=== PATIENT | female | born 1965 | race Caucasian/White ===

== ENCOUNTER 2017-08-27 07:47 | Emergency (ER) | payer SELFPAY ==
[2017-08-27] MEDS ORDERED: Ondansetron INJ* 2 MG/ML VIAL IV ONE (08:08)
[2017-08-27] MEDS ORDERED: Morphine INJ* 4 MG/ML 1 ML CARPUJECT IV PRN (08:08)
[2017-08-27] MEDS ORDERED: NS 0.9% 1000 ML* 1,000 ML IV ONE (08:08)
[2017-08-27] MEDS ORDERED: Morphine INJ* 4 MG/ML 1 ML SYRINGE (NEW SYRINGE VERSION) ONE (08:21)
[2017-08-27 08:58] LABS: ABS Basophils 0.1 10^3/ul (0-0.2); ABS Eosinophils 0.2 10^3/ul (0-0.6); ABS Lymphocytes 1.8 10^3/ul (1.0-4.8); ABS Monocytes 0.5 10^3/ul (0-0.8); ABS Neutrophils 4.2 10^3/ul (1.5-7.7); ABS Nucleated RBC 0 10^3/ul; Eosinophil % 3.2 % (0-6); Hematocrit 41 % (35-47); Hemoglobin 13.7 g/dl (12.0-16.0); Mean Corpuscular HGB Conc 34 g/dl (31-36); Mean Corpuscular Hemoglobin 32 pg (27-31); Mean Corpuscular Volume 94 fL (80-97); Mean Platelet Volume 9 um3 (7.4-10.4); Nucleated Red Blood Cells % 0.1; Platelet Count 194 10^3/ul (150-450); Red Blood Count 4.33 10^6/ul (4.0-5.4); Red Cell Distribution Width 13 % (10.5-15); White Blood Count 6.8 10^3/ul (3.5-10.8)
[2017-08-27 09:19] LABS: EGFR Non-African American 111.4 (>60)
--- NOTE | 2017-08-27 09:22 | RAD ---
HISTORY: Right upper quadrant pain COMPARISONS: None TECHNIQUE: Multiple transverse and longitudinal ultrasound images were obtained of the right upper quadrant of the abdomen using grayscale and color Doppler imaging. FINDINGS: LIVER: The liver is normal in shape, size, contour, and echogenicity. There are no focal parenchymal masses. There is normal hepatopedal flow of the portal vein on Doppler imaging. BILIARY TREE: There is no intrahepatic or extrahepatic biliary dilatation. The common duct measures 0.5 cm. GALLBLADDER: There is a 0.2 cm echogenic nonshadowing focus of the gallbladder wall consistent with a polyp. There is no sonographic Wong's sign. There is no gallbladder wall thickening or pericholecystic fluid. PANCREAS: The head of the pancreas is unremarkable. The tail of the pancreas is not well visualized secondary to overlying bowel gas. RIGHT KIDNEY: There are simple cysts of the right kidney measuring up to 1.5 cm in size. There is no hydronephrosis or nephrolithiasis. The right kidney measures 10.9 x 4.6 x 6 cm. AORTA AND IVC: The aorta and IVC are unremarkable. FLUID: There are no pleural effusions. There is no free fluid within the hepatorenal recess. OTHER FINDINGS: None. IMPRESSION: 0.2 CM GALLBLADDER WALL POLYP. OTHERWISE UNREMARKABLE ULTRASOUND OF THE RIGHT UPPER QUADRANT OF THE ABDOMEN.
[2017-08-27 10:37] LABS: Urine Appearance Cloudy; Urine Blood 1+ (Negative); Urine Color Yellow; Urine Ketones Negative (Negative); Urine Protein Negative (Negative); Urine Specific Gravity 1.011 (1.010-1.030); Urine Urobilinogen Negative (Negative)
--- NOTE | 2017-08-27 11:21 | RAD ---
CLINICAL HISTORY: Abdominal pain COMPARISON: Ultrasound dated August 27, 2017 TECHNIQUE: Multiple contiguous axial CT scans were obtained of the abdomen and pelvis, without intravenous contrast enhancement. Coronal and sagittal multiplanar reformations are submitted for review. Oral contrast was not administered. FINDINGS: The study is limited by the lack of intravenous contrast. This limits evaluation of the solid organs and vasculature. LUNG BASES: There is a calcified granuloma of the left lower lobe. LIVER: The liver is normal in shape, size, contour, and attenuation. BILE DUCTS: There is no intrahepatic or extrahepatic biliary dilatation. GALLBLADDER: The gallbladder is normal, without pericholecystic inflammatory change. PANCREAS: The pancreas is normal, without mass or ductal dilatation. SPLEEN: There are calcified granulomas of the spleen. UPPER GI TRACT: Evaluation of the gastrointestinal tract is limited by incomplete gastric distention. The upper GI tract is unremarkable. SMALL BOWEL AND MESENTERY: The small bowel is normal in contour, course, and caliber. There is no obstruction or dilatation. COLON: The colon is normal in contour, course, caliber. There is no pericolonic inflammatory change. ADRENALS: Normal bilaterally. KIDNEYS: There is a 0.2 cm punctate nonobstructing left renal calyceal stone of the lower pole. BLADDER: The bladder is smooth in contour. PELVIC ORGANS: The pelvic organs are not visualized. AORTA: The aorta is normal. IVC: Unremarkable LYMPH NODES: There is no lymphadenopathy by size criteria. ABDOMINAL WALL: There is no evidence for abdominal wall hernia. BONES AND SOFT TISSUES: The patient is status post spinal fusion. OTHER: None IMPRESSION: 1. PUNCTATE NONOBSTRUCTING LEFT RENAL CALYCEAL STONE.. 2. EVIDENCE OF EXPOSURE TO GRANULOMATOUS DISEASE.
[2017-08-27 11:41] VITALS: BP 114/76
--- NOTE | 2017-08-28 16:11 | ED ---
Jarett Orozco Angela, scribed for Rich Hilliard MD on 08/27/17 at 0801 . Abdominal Pain/Female - HPI Summary HPI Summary: This pt is a 51 y/o female presenting to [facility] via EMS c/o abd pain x3 days. Pt states her pain began after going the gym a few days ago. She notes associated symptoms of nausea and vomiting. Pt reports her pain radiates to right shoulder. She rates her pain 8.5 out of 10 in severity. Denies diarrhea. Denies tobacco, drug, and alcohol use. PMHx: Hosea's gpa, asthma, eating disorder. - History of Current Complaint Chief Complaint: EDAbdPain Stated Complaint: ABD PAIN Hx Obtained From: Patient Onset/Duration: Lasting Days, Still Present Timing: Days Severity Currently: Severe Pain Intensity: 9 Pain Scale Used: 0-10 Numeric Location: Discrete At: RUQ Radiates: Yes Radiates to: Other - right shoulder Aggravating Factor(s): Nothing Alleviating Factor(s): Nothing Associated Signs and Symptoms: Positive: Nausea, Vomiting. Negative: Diarrhea Allergies/Adverse Reactions: Allergies Allergy/AdvReac Type Severity Reaction Status Date / Time acetaminophen [From Tylenol] Allergy Unknown Verified 08/27/17 07:56 Reaction Details amoxicillin Allergy Unknown Verified 08/27/17 07:56 Reaction Details celecoxib [From Celebrex] Allergy Unknown Verified 08/27/17 07:56 Reaction Details Corticosteroids Allergy Unknown Verified 08/27/17 09:52 (Glucocorticoids) Reaction Details dicyclomine Allergy Unknown Verified 08/27/17 07:56 Reaction Details diphenhydramine Allergy Unknown Verified 08/27/17 07:56 [From Benadryl] Reaction Details Iodinated Contrast- Oral and Allergy Unknown Verified 08/27/17 09:52 IV Dye Reaction Details NSAIDS (Non-Steroidal Allergy Unknown Verified 08/27/17 07:56 Anti-Inflamma Reaction Details Penicillins Allergy Unknown Verified 08/27/17 07:56 Reaction Details tramadol Allergy Unknown Verified 08/27/17 07:56 Reaction Details trazodone Allergy Unknown Verified 08/27/17 07:56 Reaction Details PMH/Surg Hx/FS Hx/Imm Hx Endocrine/Hematology History: Denies: Hx Diabetes Cardiovascular History: Denies: Hx Hypertension Respiratory History: Reports: Hx Asthma Psychiatric History: Reports: Hx Eating Disorder - Surgical History Surgery Procedure, Year, and Place: Appendectomy. Rotator cuff Infectious Disease History: No Infectious Disease History: Denies: Traveled Outside the [place] in Last 30 Days - Family History Known Family History: Positive: Cardiac Disease - Mother - Social History Alcohol Use: None Substance Use Type: Reports: None Smoking Status (MU): Never Smoked Tobacco Review of Systems Negative: Fever, Chills Eyes: Negative ENT: Negative Positive: Abdominal Pain, Vomiting, Nausea. Negative: Diarrhea Musculoskeletal: Negative Skin: Negative Neurological: Negative All Other Systems Reviewed And Are Negative: Yes Physical Exam - Summary Physical Exam Summary: VITAL SIGNS: Reviewed. GENERAL: Patient is a well-developed and nourished female who is lying comfortable in the stretcher. Patient is not in any acute respiratory distress. HEAD AND FACE: Normocephalic and atraumatic. EYES: PERRLA, EOMI x 2, No injected conjunctiva. EARS: Hearing grossly intact. Ear canals and tympanic membranes are WNL. MOUTH: Oropharynx within normal limits. NECK: Supple, trachea is midline, no adenopathy, no JVD. CHEST: Symmetric, no tenderness at palpation LUNGS: Clear to auscultation bilaterally. No wheezing or crackles. CVS: RRR, S1 and S2 present, no murmurs or gallops appreciated. ABDOMEN: Soft. RUQ tenderness. No signs of distention. Positive bowel sounds. No rebound no guarding, and no masses palpated. No abdominal bruit or pulsations. EXTREMITIES: FROM in all major joints, no edema, no cyanosis or clubbing. NEURO: Alert and oriented x 3. No acute neurological deficits. Speech is normal. SKIN: Dry and warm Triage Information Reviewed: Yes Vital Signs On Initial Exam: Initial Vitals Temp Pulse Resp BP Pulse Ox 98.7 F 86 20 119/73 98 08/27/17 07:49 08/27/17 07:49 08/27/17 07:49 08/27/17 07:49 08/27/17 07:49 Vital Signs Reviewed: Yes Diagnostics - Vital Signs Vital Signs Temp Pulse Resp BP Pulse Ox 08/27/17 07:49 98.7 F 86 20 119/73 98 - Laboratory Lab Results: Lab Results 08/27/17 08/27/17 08/27/17 Range/Units 08:40 08:40 09:55 WBC 6.8 (3.5-10.8) 10^3/ul RBC 4.33 (4.0-5.4) 10^6/ul Hgb 13.7 (12.0-16.0) g/dl Hct 41 (35-47) % MCV 94 (80-97) fL MCH 32 H (27-31) pg MCHC 34 (31-36) g/dl RDW 13 (10.5-15) % Plt Count 194 (150-450) 10^3/ul MPV 9 (7.4-10.4) um3 Neut % (Auto) 62.5 (38-83) % Lymph % (Auto) 26.0 (25-47) % Maverick % (Auto) 7.4 H (0-7) % Eos % (Auto) 3.2 (0-6) % Baso % (Auto) 0.9 (0-2) % Absolute Neuts (auto) 4.2 (1.5-7.7) 10^3/ul Absolute Lymphs (auto) 1.8 (1.0-4.8) 10^3/ul Absolute Monos (auto) 0.5 (0-0.8) 10^3/ul Absolute Eos (auto) 0.2 (0-0.6) 10^3/ul Absolute Basos (auto) 0.1 (0-0.2) 10^3/ul Absolute Nucleated RBC 0 10^3/ul Nucleated RBC % 0.1 Sodium 137 (133-145) mmol/L Potassium 4.4 (3.5-5.0) mmol/L Chloride 102 (101-111) mmol/L Carbon Dioxide 31 (22-32) mmol/L Anion Gap 4 (2-11) mmol/L BUN 21 (6-24) mg/dL Creatinine 0.57 (0.51-0.95) mg/dL Est GFR ( Amer) 143.2 (>60) Est GFR (Non-Af Amer) 111.4 (>60) BUN/Creatinine Ratio 36.8 H (8-20) Glucose 100 (70-100) mg/dL Calcium 9.4 (8.6-10.3) mg/dL Total Bilirubin 0.50 (0.2-1.0) mg/dL AST 72 H (13-39) U/L ALT 103 H (7-52) U/L Alkaline Phosphatase 97 (34-104) U/L Total Creatine Kinase 60 (10-223) U/L C-Reactive Protein 1.00 (< 5.00) mg/L Total Protein 7.3 (6.4-8.9) g/dL Albumin 4.2 (3.2-5.2) g/dL Globulin 3.1 (2-4) g/dL Albumin/Globulin Ratio 1.4 (1-3) Lipase 13 (11.0-82.0) U/L Urine Color Yellow Urine Appearance Cloudy Urine pH 7.0 (5-9) Ur Specific [place] 1.011 (1.010-1.030) Urine Protein Negative (Negative) Urine Ketones Negative (Negative) Urine Blood 1+ A (Negative) Urine Nitrate Negative (Negative) Urine Bilirubin Negative (Negative) Urine Urobilinogen Negative (Negative) Ur Leukocyte Esterase 1+ A (Negative) Urine WBC (Auto) Trace(0-5/hpf) (Absent) Urine RBC (Auto) Trace(0-2/hpf) (Absent) Ur Squamous Epith Cells Present A (Absent) Urine Bacteria Absent (Absent) Urine Glucose Negative (Negative) Result Diagrams: 08/27/17 08:40 08/27/17 08:40 Lab Statement: Any lab studies that have been ordered have been reviewed, and results considered in the medical decision making process. - CT Abdomen/Pelvis CT CT Interpretation: Positive (See Comments) - IMPRESSION: 1. Punctate nonobstructing left renal calyceal stone. 2. Evidence of exposure to granulomatous disease. Dr. Hilliard has reviewed this radiology report. CT Interpretation Completed By: Radiologist - Ultrasound No standard instances Ultrasound Interpretation: Positive (See Comments) - Gallbladder US IMPRESSION: 0.2 CM gallbladder wall polyp. Otherwise unremarkable ultrasound of the right upper quadrant of the abdomen. Dr. Hilliard has reviewed this radiology report. Ultrasound Interpretation Completed By: Radiologist - EKG 08:23 Cardiac Rate: NL EKG Rhythm: Sinus Rhythm - at 81 bpm EKG Interpretation: No ST elevation.Hyperacute T waves in V4-V6. Possibly early repolarization. Re-Evaluation - Re-Evaluation First Eval Re-Evaluation Time: 10:14 Comment: I reviewed the ultrasound and lab results with the pt. Second Eval Re-Evaluation Time: 11:23 Comment: I reviewed the CT results with the pt. Abdominal Pain Fem Course/Dx - Course Course Of Treatment: This pt is a 51 y/o female presenting to [facility] via EMS c/o abd pain x3 days. Pt states her pain began after going the gym a few days ago. She notes associated symptoms of nausea and vomiting. Pt reports her pain radiates to right shoulder. She rates her pain 8.5 out of 10 in severity. Denies diarrhea. Denies tobacco, drug, and alcohol use. Test results without any significant abnormalities except for increase liver functions tests, possibly secondary to alcohol intake. Urinalysis is negative for UTI. RUQ ultrasound shows 0.2 CM gallbladder wall polyp. Otherwise unremarkable ultrasound of the right upper quadrant of the abdomen. Since the pt continues to have pain she was given IV fluids and morphine for the pain and I ordered an abdomen/pelvis CT. Abdomen/Pelvis CT shows 1. Punctate nonobstructing left renal calyceal stone. 2. Evidence of exposure to granulomatous disease. At this point I discussed the test results and findings with the pt and the need to follow up with her PCP. Therefore, pt will be discharged home. Pt is hemodynamically stable, alert and oriented x3. - Diagnoses Provider Diagnoses: Abdominal pain, Right upper quadrant pain Discharge - Discharge Plan Condition: Stable Disposition: HOME Patient Education Materials: Abdominal Pain (ED) Forms: *School Release Referrals: No Primary Care Phys,NOPCP [Primary Care Provider] - [facility] [facility]IAN REFERRAL [Outside] Additional Instructions: Please follow up with your primary care provider. RETURN TO THE ED FOR ANY WORSENING SYMPTOMS. The documentation as recorded by the Jarett boss Angela accurately reflects the service I personally performed and the decisions made by me, Rich Hilliard MD.
== END 2017-08-27 11:39 | disposition home or self-care (01) ==
LOC: ED 07:47
DX: R10.11 Right upper quadrant pain (principal); N20.0 Calculus of kidney; K82.4 Cholesterolosis of gallbladder; Z88.8 Allergy status to other drugs, medicaments and biological substances; Z88.6 Allergy status to analgesic agent; Z88.3 Allergy status to other anti-infective agents; Z88.5 Allergy status to narcotic agent; Z91.010 Allergy to peanuts; Z91.041 Radiographic dye allergy status
CPT/HCPCS: 36415; 74176; 76705; 80053; 81003; 81015; 82550; 83690; 85025; 86140; 87086; 93005; 96361; 96374; 96375; 99282; J2270; J2405

== ENCOUNTER 2018-02-02 03:10 | Emergency (ER) | payer BC, MEDICAID, OTHER ==
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
[2018-02-02] MEDS ORDERED: Ibuprofen TAB* 400 MG PO ONE (03:58)
[2018-02-02 06:29] VITALS: BP 140/98
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
== END 2018-02-02 06:00 | disposition home or self-care (01) ==
LOC: ED 03:10
DX: T76.11XA Adult physical abuse, suspected, initial encounter (principal); Z88.6 Allergy status to analgesic agent; Z88.3 Allergy status to other anti-infective agents; Z88.0 Allergy status to penicillin; Z91.041 Radiographic dye allergy status
CPT/HCPCS: 99282

== ENCOUNTER 2018-03-10 19:51 | Emergency (ER) | payer SELFPAY ==
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
[2018-03-10 22:11] VITALS: BP 134/65
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
== END 2018-03-10 22:10 | disposition home or self-care (01) ==
LOC: ED 19:51
DX: T14.8XXA Other injury of unspecified body region, initial encounter (principal); V89.2XXA Person injured in unspecified motor-vehicle accident, traffic, initial encounter; Y92.9 Unspecified place or not applicable; Z87.891 Personal history of nicotine dependence
CPT/HCPCS: 70450; 99282

== ENCOUNTER 2018-03-16 02:58 | Emergency (ER) | payer OTHER ==
[2018-03-16] MEDS ORDERED: LORazepam TAB(*) 1 MG PO ONE (03:37)
[2018-03-16] MEDS ORDERED: Haloperidol INJ IV/IM* 5 MG/ML AMP IM ONE (03:37)
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
[2018-03-16] MEDS ORDERED: Haloperidol INJ IV/IM* 5 MG/ML AMP ONE (03:38)
[2018-03-16 04:38] LABS: ABS Basophils 0.1 10^3/ul (0-0.2); ABS Eosinophils 0 10^3/ul (0-0.6); ABS Lymphocytes 1.8 10^3/ul (1.0-4.8); ABS Monocytes 0.6 10^3/ul (0-0.8); ABS Neutrophils 5.8 10^3/ul (1.5-7.7); ABS Nucleated RBC 0 10^3/ul; Eosinophil % 0.4 % (0-6); Hematocrit 39 % (35-47); Hemoglobin 13.4 g/dl (12.0-16.0); Lymphocyte % 21.2 % (25-47); Mean Corpuscular HGB Conc 35 g/dl (31-36); Mean Corpuscular Hemoglobin 31 pg (27-31); Mean Corpuscular Volume 90 fL (80-97); Mean Platelet Volume 8.4 um3 (7.4-10.4); Nucleated Red Blood Cells % 0.3; Platelet Count 224 10^3/ul (150-450); Red Blood Count 4.31 10^6/ul (4.00-5.40); Red Cell Distribution Width 14 % (10.5-15); White Blood Count 8.3 10^3/ul (3.5-10.8)
[2018-03-16 04:53] LABS: EGFR Non-African American 115.6 (>60)
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
--- NOTE | 2018-03-16 09:40 | RAD ---
INDICATION: Swelling and pain one week after a fall COMPARISON: None TECHNIQUE: 4 view radiograph of the right knee. FINDINGS: The visualized bones are well-corticated and properly aligned. Mild degenerative changes include mild sclerotic change of the tibial plateau as well as narrowing of the medial compartment. There is an osteophyte noted at the superior pole of the patella on the lateral view. There is no radiographic evidence of joint effusion. There is no acute fracture, dislocation or other focal bony abnormality. IMPRESSION: Mild degenerative changes of the right knee without radiographically apparent acute fracture or other traumatic injury. If the patient's symptoms persist, follow-up imaging is recommended.
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
[2018-03-16 10:38] LABS: Urine Appearance Cloudy; Urine Blood Negative (Negative); Urine Color Yellow; Urine Ketones 1+ (Negative); Urine Protein Negative (Negative); Urine Specific Gravity 1.023 (1.010-1.030); Urine Urobilinogen Negative (Negative)
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
[2018-03-16 14:17] VITALS: BP 122/70
== END 2018-03-16 14:16 | disposition home or self-care (01) ==
LOC: ED 02:58 → EEVIPCON 02:58 → ED 14:16
DX: F43.10 Post-traumatic stress disorder, unspecified (principal); T76.11XA Adult physical abuse, suspected, initial encounter; X58.XXXA Exposure to other specified factors, initial encounter; Y92.9 Unspecified place or not applicable; R91.1 Solitary pulmonary nodule; N28.1 Cyst of kidney, acquired; Z87.891 Personal history of nicotine dependence; Z88.5 Allergy status to narcotic agent; Z88.6 Allergy status to analgesic agent; Z88.3 Allergy status to other anti-infective agents; Z88.8 Allergy status to other drugs, medicaments and biological substances; Z88.0 Allergy status to penicillin; Z91.041 Radiographic dye allergy status
CPT/HCPCS: 36415; 74176; 80053; 80307; 80320; 80329; 81003; 84443; 85025; 86703; 87480; 87491; 87510; 87591; 87661; 96372; 99285; G0480; J1630

== ENCOUNTER 2018-03-27 18:58 | Emergency (ER) | payer SELFPAY ==
[2018-03-27] MEDS ORDERED: oxyCODONE TAB* 5 MG TAB PO ONE (19:59)
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
[2018-03-27 20:57] VITALS: BP 121/75
--- NOTE | 2018-03-28 07:21 | RAD ---
Indication: Fell and hurt RIGHT leg and RIGHT side. Decreased range of motion at the RIGHT knee. Comparison: March 16, 2018 Technique: RIGHT knee: AP, tunnel, crosstable lateral, sunrise views. Report: Small suprapatellar joint effusion. Negative for fracture or malalignment. Tricompartmental mild osteoarthritis. Unremarkable soft tissue contours. IMPRESSION: #. Negative for fracture. #. Small joint effusion. #. Mild osteoarthritis. R0
== END 2018-03-27 21:24 | disposition home or self-care (01) ==
LOC: ED 18:58
DX: M25.561 Pain in right knee (principal); M17.11 Unilateral primary osteoarthritis, right knee; F17.200 Nicotine dependence, unspecified, uncomplicated; Z88.3 Allergy status to other anti-infective agents; Z88.8 Allergy status to other drugs, medicaments and biological substances; Z88.0 Allergy status to penicillin; Z88.5 Allergy status to narcotic agent
CPT/HCPCS: 99282; A9270-GY

== ENCOUNTER 2018-04-30 10:42 | Emergency (ER) | payer OTHER ==
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
[2018-04-30 12:24] VITALS: BP 137/73
== END 2018-04-30 12:24 | disposition home or self-care (01) ==
LOC: ED 10:42
DX: M79.18 Myalgia, other site (principal); M79.89 Other specified soft tissue disorders; Z86.718 Personal history of other venous thrombosis and embolism; Z88.5 Allergy status to narcotic agent; Z88.0 Allergy status to penicillin; Z88.8 Allergy status to other drugs, medicaments and biological substances; Z88.6 Allergy status to analgesic agent; Z91.041 Radiographic dye allergy status; F17.200 Nicotine dependence, unspecified, uncomplicated
CPT/HCPCS: 99282

== ENCOUNTER 2018-05-03 08:20 | Emergency (ER) | payer SELFPAY ==
[2018-05-03 08:29] VITALS: BP 131/71
--- NOTE | 2018-05-03 08:49 | UC ---
UC General HPI - HPI Summary HPI Summary: 52 yo female c/o feeling bad since last evening. + weak, + vomit x 2+ episodes. No blood. Discomfort in upper right and mid back. Not sob. Unclear if palpitations. Reports that she recently has been dx'd with lung mass , and w/u still in progress. Has not started tx yet. Seen in the ED 3 days ago re pain in R leg (still has it) behind R knee and thigh. Pain still present but better. No rash. No report of melena. - History of Current Complaint Chief Complaint: UCDizziness Stated Complaint: ONCOLOGY Time Seen by Provider: 05/03/18 08:29 Hx Obtained From: Patient Pain Intensity: 2 - Allergy/Home Medications Allergies/Adverse Reactions: Allergies Allergy/AdvReac Type Severity Reaction Status Date / Time acetaminophen [From Tylenol] Allergy Unknown Verified 05/03/18 08:31 Reaction Details amoxicillin Allergy Unknown Verified 05/03/18 08:31 Reaction Details celecoxib [From Celebrex] Allergy Unknown Verified 05/03/18 08:31 Reaction Details Corticosteroids Allergy Unknown Verified 05/03/18 08:31 (Glucocorticoids) Reaction Details dicyclomine Allergy Unknown Verified 05/03/18 08:31 Reaction Details diphenhydramine Allergy Unknown Verified 05/03/18 08:31 [From Benadryl] Reaction Details Iodinated Contrast- Oral and Allergy Unknown Verified 05/03/18 08:31 IV Dye Reaction Details NSAIDS (Non-Steroidal Allergy Unknown Verified 05/03/18 08:31 Anti-Inflamma Reaction Details Penicillins Allergy Unknown Verified 05/03/18 08:31 Reaction Details propranolol Allergy See Comment Verified 05/03/18 08:31 Sulfa (Sulfonamide Allergy Unknown Verified 05/03/18 08:31 Antibiotics) Reaction Details tramadol Allergy Unknown Verified 05/03/18 08:31 Reaction Details trazodone Allergy Unknown Verified 05/03/18 08:31 Reaction Details Home Medications: Home Medications Gabapentin 300 mg PO DAILY 05/03/18 [History Confirmed 05/03/18] PMH/Surg Hx/FS Hx/Imm Hx Previously Healthy: Yes - Surgical History Surgical History: Yes Surgery Procedure, Year, and Place: Appendectomy. Rotator cuff. back surgery - Family History Known Family History: Positive: Cardiac Disease - Mother - Social History Alcohol Use: None Substance Use Type: Prescribed Substance Use Comment - Amount & Last Used: suboxone Smoking Status (MU): Light Every Day Tobacco Smoker Have You Smoked in the Last Year: Yes Household Exposure Type: Cigarettes Review of Systems All Other Systems Reviewed And Are Negative: Yes Constitutional: Positive: Fatigue Skin: Positive: Negative Eyes: Positive: Negative ENT: Positive: Negative Respiratory: Positive: Other - see hpi Cardiovascular: Positive: Other - see hpi Gastrointestinal: Positive: Vomiting Genitourinary: Positive: Negative Motor: Positive: Weakness Neurovascular: Positive: Other - see hpi. No report of focal weakness. Musculoskeletal: Positive: Other: - see hpi Neurological: Positive: Other - see hpi Psychological: Positive: Anxious Is Patient Immunocompromised?: No Physical Exam Triage Information Reviewed: Yes Appearance: Well-Nourished - nondiaphoretic Vital Signs: Initial Vital Signs Temp 97.5 F 05/03/18 08:21 Pulse 74 05/03/18 08:21 Resp 18 05/03/18 08:21 BP 131/71 05/03/18 08:21 Pulse Ox 100 05/03/18 08:21 Vital Signs Reviewed: Yes Eye Exam: Normal - perrla eomi sw cp ENT Exam: Normal - mmm grossly normal Neck exam: Normal Neck: Positive: Supple Respiratory Exam: Other - bs equal and clear. no wheeze Cardiovascular Exam: Normal - HR regular. Correlates with cough. Abdominal Exam: Normal Abdomen Description: Positive: Nontender Musculoskeletal Exam: Normal - moves x 4 ext's. Without gini BLE edema. + tender R post knee and thigh. Tight jeans. Neurological Exam: Other - no focal findings to generaly neurologic exam Psychological Exam: Normal - conversing easily and appropriately. Skin Exam: Normal - nondiaphoretic. Course/Dx - Course Course Of Treatment: EMS notified - pt agrees to go to ED via EMS. Reviewed ED notes / ancillaries from e days ago. EKG reviewed - c/w August 2017- similar pattern. SR at [address] elev c/w early repol (same in [place] 2018). I do not think this is a stemi, but c/ exclude cardiovasc or pulmonary or other. BS noted. D/w LUCILA Adams (ED) - Differential Dx - Multi-Symptom Provider Diagnoses: Weak. chest pain Discharge - Sign-Out/Discharge Documenting (check all that apply): Patient Departure All imaging exams completed and their final reports reviewed: No Studies - Discharge Plan Condition: Guarded Disposition: TRANS HIGHER LVL OF CARE FAC Referrals: Mandi Calzada MD [Primary Care Provider] - - Billing Disposition and Condition Condition: GUARDED Disposition: Trans Higher Lvl of Care Fac
[2018-05-03] MEDS ORDERED: Aspirin 81 mg CHEW TAB* 81 MG TAB.CHEW PO ONE (08:52)
[2018-05-03] MEDS ORDERED: Aspirin 81 mg CHEW TAB* 81 MG TAB.CHEW ONE (08:52)
== END 2018-05-03 09:10 | disposition short-term general hospital (02) ==
LOC: UCEAST 08:20
DX: R53.1 Weakness (principal); R07.9 Chest pain, unspecified; R11.10 Vomiting, unspecified; M54.9 Dorsalgia, unspecified; F17.210 Nicotine dependence, cigarettes, uncomplicated; Z88.6 Allergy status to analgesic agent; Z88.0 Allergy status to penicillin; Z88.1 Allergy status to other antibiotic agents; Z91.041 Radiographic dye allergy status; Z88.8 Allergy status to other drugs, medicaments and biological substances; Z88.2 Allergy status to sulfonamides
CPT/HCPCS: 93005; 99213; A9270-GY; G0463

== ENCOUNTER 2018-05-03 09:28 | Observation (INO) | payer MEDICAID, OTHER ==
[2018-05-03 10:09] LABS: ABS Basophils 0.1 10^3/ul (0-0.2); ABS Eosinophils 0.3 10^3/ul (0-0.6); ABS Lymphocytes 2.4 10^3/ul (1.0-4.8); ABS Monocytes 0.4 10^3/ul (0-0.8); ABS Neutrophils 2.2 10^3/ul (1.5-7.7); ABS Nucleated RBC 0 10^3/ul; Eosinophil % 5.1 % (0-6); Hematocrit 38 % (35-47); Hemoglobin 13.1 g/dl (12.0-16.0); Lymphocyte % 44.7 % (25-47); Mean Corpuscular HGB Conc 34 g/dl (31-36); Mean Corpuscular Hemoglobin 31 pg (27-31); Mean Corpuscular Volume 91 fL (80-97); Mean Platelet Volume 8.6 fL (7.4-10.4); Nucleated Red Blood Cells % 0.1; Platelet Count 201 10^3/ul (150-450); Red Cell Distribution Width 13 % (10.5-15); White Blood Count 5.4 10^3/ul (3.5-10.8)
[2018-05-03 10:30] LABS: EGFR Non-African American 145.7 (>60)
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
[2018-05-03 14:08] LABS: Urine Appearance Cloudy; Urine Blood Negative (Negative); Urine Color Yellow; Urine Ketones Negative (Negative); Urine Protein Negative (Negative); Urine Red Blood Cell 2+(6-10/hpf) (Absent); Urine Urobilinogen Negative (Negative); Urine White Blood Cell 1+(6-10/hpf) (Absent)
[2018-05-03] MEDS ORDERED: NS 0.9% 1000 ML* 1,000 ML IV ONE ×2 (14:23→15:39)
[2018-05-03] MEDS ORDERED: Ondansetron INJ* 2 MG/ML VIAL IV PRN (15:39)
[2018-05-03] MEDS: NS 0.9% 1000 ML* 1,000 ML IV SCH (20:20)
[2018-05-03] MEDS: Gabapentin CAP(*) 300 MG PO SCH (20:25)
[2018-05-03] MEDS ORDERED: Enoxaparin(*) 40 MG/0.4 ML SYR SUBCUT SCH (21:00)
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
[2018-05-04] MEDS: NS 0.9% 1000 ML* 1,000 ML IV SCH (06:08)
[2018-05-04 08:16] VITALS: BP 108/83
[2018-05-04] MEDS: Gabapentin CAP(*) 300 MG PO SCH (08:33)
[2018-05-04] MEDS ORDERED: Buprenorp/Nalox 8-2 MG SL TAB.SL SL SCH (09:00)
[2018-05-04] MEDS ORDERED: DULoxetine DR CAP* 30 MG CAP.DR PO SCH (09:00)
--- NOTE | 2018-05-05 03:13 | DS ---
CC: Dr. Mandi Calzada, [facility] * DISCHARGE SUMMARY: DATE OF ADMISSION: 05/03/18 DATE OF DISCHARGE: 05/04/18 PRIMARY CARE PROVIDER: Dr. Mandi Calzada at [facility]. PRINCIPAL DIAGNOSES: 1. Syncope - likely orthostatic. 2. Anorexia. SECONDARY DIAGNOSES: 1. Depression/anxiety. 2. Asthma. 3. Attention deficit hyperactivity disorder. 4. Hepatitis C. 5. History of non-Hodgkin's lymphoma. 6. Right lower lobe lung nodule - due to be followed upon. DISCHARGE MEDICATIONS: 1. Suboxone 8-2 one tab sublingual daily. 2. Duloxetine 30 mg p.o. daily. 3. Gabapentin 300 mg p.o. twice daily. 4. Adderall 15 mg p.o. b.i.d. HOSPITAL COURSE: Ms. He is a 52-year-old female, who has a history of anorexia, depression/anxiety, past narcotic abuse, who currently is on Suboxone , who presents to the emergency room with complaints of syncopal episode. The patient states over the last 3 to 4 days, she has found herself nodding off or passing out. She states that this happened in her car on her way to an oncology appointment. The patient at the oncology office got out of her car and was walking in and again felt very lightheaded and near syncopal at that point. The patient was then taken to urgent care and subsequently sent to the emergency room for evaluation. The patient at this point has been evaluated on telemetry overnight. She has had a PAC though no other concerning arrhythmias. The patient did not undergo echocardiogram as this was unable to be performed while she was in the hospital. An echocardiogram as an outpatient should be considered for her recurrent syncope. My biggest suspicion is that the patient' s syncope is likely orthostatic in nature. She has somewhat of a restrictive eating pattern in that she drinks Boost and eats grapes but not much else. The patient has been instructed here in the hospital to push fluids and will continue to do so. She has received IV fluid the entire time she has been in the hospital. Of note, orthostatic blood pressures were attempted to be obtained; however, when they were obtained this was several hours after she had already been in the hospital and receiving fluids and they were normal. On the day of discharge, the patient is awake, alert, and oriented, sitting up in bed in no acute distress. She was able to sit herself up even further without any complaints of dizziness. Her cardiac exam reveals a normal S1, S2 with a regular rate and rhythm. Her lungs are clear. She has no lower extremity edema. Abdomen is soft, nontender, and nondistended. She moves all 4 extremities symmetrically. The patient's vital signs are stable with a blood pressure of 108/83, pulse of 75, respirations are 18, temp of 97.3, and O2 sat was 100% on room air. FOLLOWUP CONCERNS: The patient is being discharged home to the [facility] today, 05/04/18. Activity level is as tolerated. Diet is regular. Condition on discharge is stable. The patient has been instructed to follow up with Dr. Calzada in the next 4 to 7 days. TIME SPENT: Twenty-five minutes was spent discharging this patient. [id number] #: [id number] RAJAT
--- NOTE | 2018-05-08 10:18 | EEG ---
ELECTROENCEPHALOGRAPHY: DATE OF STUDY: - ROOM #442 DATE OF DICTATION: 05/07/18 PATIENT OF: Dr. Burgess. CLINICAL PROBLEM: This is a 52-year-old woman being evaluated for syncopal episodes. She has a past history of non-Hodgkin's lymphoma and a question of lung cancer at this time. MEDICATIONS: Include: 1. Gabapentin. 2. Suboxone. 3. Duloxetine. 4. Zofran. REPORT: With the patient awake, background cerebral activity consists of moderate amplitude posterior dominant 8 Hz rhythm. With the patient drowsy, there is slowing into the theta range. The patient never falls fully asleep. No epileptiform potentials, focal abnormalities, or major asymmetries of background are noted. CLINICAL IMPRESSION: This awake and drowsy EEG is within normal limits. [id number] #: [id number] MTDD
== END 2018-05-04 13:35 | disposition home or self-care (01) ==
LOC: ED 09:28 → MEDTELE 15:39
PROVIDERS: ADMIT Hospitalist; ATTEND Hospitalist
DX: R55 Syncope and collapse (principal); R63.0 Anorexia; F32.9 Major depressive disorder, single episode, unspecified; J45.909 Unspecified asthma, uncomplicated; F90.9 Attention-deficit hyperactivity disorder, unspecified type; B19.20 Unspecified viral hepatitis C without hepatic coma; R91.1 Solitary pulmonary nodule; Z85.72 Personal history of non-Hodgkin lymphomas; R79.89 Other specified abnormal findings of blood chemistry; Z88.0 Allergy status to penicillin; F17.210 Nicotine dependence, cigarettes, uncomplicated; H53.8 Other visual disturbances
CPT/HCPCS: 36415; 70450; 80053; 80307; 80320; 81003; 81015; 83605; 83735; 84439; 84443; 84484; 85025; 85379; 85730; 87086; 93005; 95819; 96361; 96372; 96374; 99285; A9270-GY; G0378; G0480; J1650

== ENCOUNTER 2018-07-17 13:12 | Emergency (ER) | payer OTHER ==
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
[2018-07-17] MEDS ORDERED: Buprenorp/Nalox 8-2 MG SL TAB.SL PO SCH (17:00)
[2018-07-17 19:29] VITALS: BP 149/74
== END 2018-07-17 19:38 | disposition home or self-care (01) ==
LOC: ED 13:12
DX: M16.11 Unilateral primary osteoarthritis, right hip (principal); G89.29 Other chronic pain; F17.210 Nicotine dependence, cigarettes, uncomplicated; B19.20 Unspecified viral hepatitis C without hepatic coma; Z88.0 Allergy status to penicillin; J45.909 Unspecified asthma, uncomplicated
CPT/HCPCS: 99283; A9270-GY

== ENCOUNTER → 2018-12-17 21:22 | Emergency (ER) | payer BC, OTHER ==
[2018-12-17 21:30] VITALS: BP 122/93
== END | disposition left against medical advice (07) ==
LOC: ED 21:22
DX: L02.91 Cutaneous abscess, unspecified (principal); Z53.21 Procedure and treatment not carried out due to patient leaving prior to being seen by health care provider

== ENCOUNTER 2019-06-16 12:22 | Emergency (ER) | payer MEDICAID, OTHER ==
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
--- OUTSIDE RECORDS SUMMARY | 2019-06-16 12:39 | XMS REPORT ---
:1965 Author Organization [facility] Care Team Providers Name Role Phone Unavailable Unavailable Unavailable Problems Condition Condition Condition Status Onset Resolution Last Treating Comments Name Details Category Date Date Treatment Clinician Date Pain frequent Pain Mgmt Resolve 2019-03-27 Lizzie pain d 03-14 09:15:00 [place] 12:00: [id number] 00 Respiratory dyspnea Respirator Resolve 2019-04-10 Lizzie present y d 03-14 10:10:00 [place] 12:00: [id number] 00 Nutrition nutritional Nutrition Resolve 2019-04-15 Lizzie restriction d 03-14 14:05:00 [place] s 12:00: [id number] 00 Elimination UTI within Eliminatio Resolve 2019-03-20 Lizzie past 14 n d 03-14 09:30:00 [place] days 12:00: [id number] 00 Elimination constipatio Eliminatio Resolve 2019-04-01 Lizzie n n d 03-14 09:50:00 [place] 12:00: [id number] 00 Elimination urinary Eliminatio Resolve 2019-04-01 Lizzie incontinenc n d 03-14 09:50:00 [place] e 12:00: [id number] 00 Elimination knowledge/s Eliminatio Resolve 2019-04-01 Lizzie kill n d 03-14 09:50:00 [place] deficit: pt 12:00: [id number] 00 Neuro confusion Neuro/Emot Active Lizzie present ion 03-14 Nick 12:00: [id number] 00 Neuro anxiety Neuro/Emot Active Lizzie present ion 03-14 Nick 12:00: [id number] 00 Neuro depressive Neuro/Emot Active Lizzie feelings ion 03-14 [place] present 12:00: [id number] 00 Neuro impaired Neuro/Emot Active Lizzie decision-ma ion 03-14 [place] con 12:00: [id number] 00 Neuro memory Neuro/Emot Active Lizzie deficit ion 03-14 [place] needing 12:00: [id number] supervision 00 Neuro knowledge/s Neuro/Emot Active Lizzie kill ion 03-14 [place] deficit: pt 12:00: [id number] 00 Activity ADL Activity Resolve 2019-04-01 Lizzie assistance d 03-14 09:50:00 [place] required 12:00: [id number] 00 Activity self-care Activity Resolve 2019-04-01 Lizzie deficit d 03-14 09:50:00 [place] 12:00: [id number] 00 Safety fall risk Safety Active Lizzie factor 03-14 [place] present 12:00: [id number] 00 Safety risk for Safety Active Lizzie hospitaliza 03-14 [place] tion 12:00: [id number] 00 Medication oral med Meds Resolve 2019-03-27 Lizzie assistance d 03-14 09:15:00 [place] required 12:00: [id number] 00 Medication knowledge/s Meds Active Lizzie kill 03-14 [place] deficit: pt 12:00: [id number] 00 Medication potential Meds Active Lizzie clinically 03-14 [place] significant 12:00: [id number] medication 00 issue Musculoskel transfer Musculoske Resolve 2019-03-20 Lizzie etal assistance letal d 03-14 09:30:00 [place] required 12:00: [id number] 00 Musculoskel requires Musculoske Resolve 2019-03-20 Lizzie etal human letal d 03-14 09:30:00 [place] assist to 12:00: [id number] leave home 00 Respiratory smoker Respirator Active [...] flu vaccine 2018-06 Yes Ajay Unknown Unknown [id number](17yr [id number](17yr 0-10 Kizzy INGRAM up)rcmb(PF) up)rcmb(PF) ne 180 [...]
--- OUTSIDE RECORDS SUMMARY | 2019-06-16 12:39 | XMS REPORT ---
:1965 Author Organization [facility] Care Team Providers Name Role Phone Unavailable Unavailable Unavailable Problems Condition Condition Condition Status Onset Resolution Last Treating Comments Name Details Category Date Date Treatment Clinician Date Pain frequent Pain Mgmt Resolve 2019-03-27 Lizzie pain d 03-14 09:15:00 [place] 12:00: [id number] 00 Respiratory dyspnea Respirator Resolve 2019-04-10 Lizzie present y d 03-14 10:10:00 [place] 12:00: [id number] 00 Nutrition nutritional Nutrition Resolve 2019-04-15 Lizzie restriction d 03-14 14:05:00 [place] s 12:00: [id number] 00 Elimination UTI within Eliminatio Resolve 2019-03-20 Lizzie past 14 n d 03-14 09:30:00 [place] days 12:00: [id number] 00 Elimination constipatio Eliminatio Resolve 2019-04-01 Lizzie n n d 03-14 09:50:00 [place] 12:00: [id number] 00 Elimination urinary Eliminatio Resolve 2019-04-01 Lizzie incontinenc n d 03-14 09:50:00 [place] e 12:00: [id number] 00 Elimination knowledge/s Eliminatio Resolve 2019-04-01 Lizzie kill n d 03-14 09:50:00 [place] deficit: pt 12:00: [id number] 00 Neuro confusion Neuro/Emot Active Lizzie present ion 03-14 [place] 12:00: [id number] 00 Neuro anxiety Neuro/Emot Active Lizzie present ion 03-14 Nick 12:00: [id number] 00 Neuro depressive Neuro/Emot Active Lizzie feelings ion 03-14 Nick present 12:00: [id number] 00 Neuro impaired Neuro/Emot Active Lizzie decision-ma ion 03-14 [place] con 12:00: [id number] 00 Neuro memory Neuro/Emot Active Lizzie deficit ion 03-14 [place] needing 12:00: [id number] supervision 00 Neuro knowledge/s Neuro/Emot Active Lizzie kill ion 03-14 [place] deficit: pt 12:00: [id number] 00 Activity ADL Activity Resolve 2019-04-01 Lizzie assistance d 03-14 09:50:00 [place] required 12:00: [id number] 00 Activity self-care Activity Resolve 2019-04-01 Lizzie deficit d 03-14 09:50:00 [place] 12:00: [id number] 00 Safety fall risk Safety Active Lizzie factor 03-14 [place] present 12:00: [id number] 00 Safety risk for Safety Active Lizzie hospitaliza 03-14 [place] tion 12:00: [id number] 00 Medication oral med Meds Resolve 2019-03-27 Lizzie assistance d 03-14 09:15:00 [place] required 12:00: [id number] 00 Medication knowledge/s Meds Active Lizzie kill 03-14 [place] deficit: pt 12:00: [id number] 00 Medication potential Meds Active Lizzie clinically 03-14 [place] significant 12:00: [id number] medication 00 issue Musculoskel transfer Musculoske Resolve 2019-03-20 Lizzie etal assistance letal d 03-14 09:30:00 [place] required 12:00: [id number] 00 Musculoskel requires Musculoske Resolve 2019-03-20 Lizzie etal human letal d 03-14 09:30:00 [place] assist to 12:00: [id number] leave home 00 Respiratory smoker Respirator Active [...] Unknown 50,000 unit 50,000 unit 03-14 12-05 Kizzy INGRAM capsule capsule ne Vosevi 400 Vosevi 400 Yes Ajay Unknown Unknown mg-100 mg-100 03-14 Kizzy INGRAM mg-100 mg mg-100 mg ne tablet tablet nitrofurant nitrofurant 2018- Yes Ajay Unknown Unknown oin oin 03-23 10-08 Kizzy INGRAM ne l 100 mg l 100 mg capsule capsule flu vaccine flu vaccine 2018-06 Yes Ajay Unknown Unknown [id number](17yr [id number](17yr 0-10 Kizzy INGRAM up)rcmb(PF) up)rcmb(PF) ne 180 mcg(45 180 mcg(45 mcgx4)/0.5 mcgx4)/0.5 mL IM mL IM syringe syringe nitrofurant nitrofurant 2018-06- Yes Ajay Unknown Unknown oin oin 0 11-04 Kizzy INGRAMrysta ne l 100 mg l 100 mg capsule capsule Vital Signs Vital Name Observation Time Observation Value Comments SYSTOLIC mm[Hg] 2019-06-02 18:09:16 124 mm[Hg] mm[Hg] Method: Sit SYSTOLIC mm[Hg] 2019-05-13 18:08:56 136 mm[Hg] mm[Hg] Method: Stand DIASTOLIC mm[Hg] 2019-06-02 18:09:16 80 mm[Hg] mm[Hg] Method: Sit DIASTOLIC mm[Hg] 2019-05-13 18:08:56 82 mm[Hg] mm[Hg] Method: Stand PULSE 2019-06-02 18:09:16 79 /min /min RESP RATE 2019-06-02 18:09:16 18 /min /min TEMP 2019-06-02 18:09:16 98.2 [degF] Procedures This patient has no known procedures. Results This patient has no known results.
--- OUTSIDE RECORDS SUMMARY | 2019-06-16 12:39 | XMS REPORT ---
:1965 Author Organization [facility] Care Team Providers Name Role Phone Unavailable Unavailable Unavailable Problems Condition Condition Condition Status Onset Resolution Last Treating Comments Name Details Category Date Date Treatment Clinician Date Pain frequent Pain Mgmt Resolve 2019-03-27 Lizzie pain d 03-14 09:15:00 [place] 12:00: [id number] 00 Respiratory dyspnea Respirator Resolve 2019-04-10 Lizzie present y d 03-14 10:10:00 [place] 12:00: [id number] 00 Nutrition nutritional Nutrition Resolve 2019-04-15 Lizzie restriction d 03-14 14:05:00 [place] s 12:00: [id number] 00 Elimination UTI within Eliminatio Resolve 2019-03-20 Lizzie past 14 n d 03-14 09:30:00 [place] days 12:00: [id number] 00 Elimination constipatio Eliminatio Resolve 2019-04-01 Lizzie n n d 03-14 09:50:00 [place] 12:00: [id number] 00 Elimination urinary Eliminatio Resolve 2019-04-01 Lizzie incontinenc n d 03-14 09:50:00 [place] e 12:00: [id number] 00 Elimination knowledge/s Eliminatio Resolve 2019-04-01 Lizzie kill n d 03-14 09:50:00 [place] deficit: pt 12:00: [id number] 00 Neuro confusion Neuro/Emot Active Lizzie present ion 03-14 Nick 12:00: [id number] 00 Neuro anxiety Neuro/Emot Active Lizzie present ion 03-14 Nick 12:00: [id number] 00 Neuro depressive Neuro/Emot Active Lizzie feelings ion 03-14 [place] present 12:00: [id number] 00 Neuro impaired Neuro/Emot Active Lizzie decision-ma ion 03-14 [place] con 12:00: [id number] 00 Neuro memory Neuro/Emot Active Lizzie deficit ion 03-14 [place] needing 12:00: [id number] supervision 00 Neuro knowledge/s Neuro/Emot Active Lizzie kill ion 03-14 [place] deficit: pt 12:00: [id number] 00 Activity ADL Activity Resolve 2019-04-01 Lizzie assistance d 03-14 09:50:00 [place] required 12:00: [id number] 00 Activity self-care Activity Resolve 2019-04-01 Lizzie deficit d 03-14 09:50:00 [place] 12:00: [id number] 00 Safety fall risk Safety Active Lizzie factor 03-14 [place] present 12:00: [id number] 00 Safety risk for Safety Active Lizzie hospitaliza 03-14 [place] tion 12:00: [id number] 00 Medication oral med Meds Resolve 2019-03-27 Lizzie assistance d 03-14 09:15:00 [place] required 12:00: [id number] 00 Medication knowledge/s Meds Active Lizzie kill 03-14 [place] deficit: pt 12:00: [id number] 00 Medication potential Meds Active Lizzie clinically 03-14 [place] significant 12:00: [id number] medication 00 issue Musculoskel transfer Musculoske Resolve 2019-03-20 Lizzie etal assistance letal d 03-14 09:30:00 [place] required 12:00: [id number] 00 Musculoskel requires Musculoske Resolve 2019-03-20 Lizzie etal human letal d 03-14 09:30:00 [place] assist to 12:00: [id number] leave home 00 Respiratory smoker Respirator Active [...] flu vaccine 2018-06 Yes Ajay Unknown Unknown [id number](17yr [id number](17yr 0-10 Kzizy INGRAM up)rcmb(PF) up)rcmb(PF) ne 180 mcg(45 180 [...]
--- OUTSIDE RECORDS SUMMARY | 2019-06-16 12:39 | XMS REPORT ---
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 Nicotine Nicotine Diagnosis Active Bárbara dependence, dependence, [place] cigarettes, cigarettes, RN uncomplicat uncomplicat ed ed Pain frequent Pain Mgmt Resolve 2019-03-27 Lizzie pain d 03-14 09:15:00 [place] 12:00: [id number] 00 Respiratory dyspnea Respirator Resolve 2019-04-10 Lizzie present y d 03-14 10:10:00 [place] 12:00: [id number] 00 Nutrition nutritional Nutrition Resolve 2019-04-15 Lizzie restriction d 03-14 14:05:00 Nick 12:00: [id number] 00 Elimination UTI within Eliminatio Resolve 2019-03-20 Lizzie past 14 n d 03-14 09:30:00 [place] days 12:00: [id number] 00 Elimination constipatio Eliminatio Resolve 2019-04-01 Lizzie n n d 03-14 09:50:00 [place] 12:00: [id number] 00 Elimination urinary Eliminatio Resolve 2019-04-01 Lizzie incontinenc n d 03-14 09:50:00 [place] e 12:00: [id number] 00 Elimination knowledge/s Eliminatio Resolve 2019-04-01 Lizzie kill n d 03-14 09:50:00 [place] deficit: pt 12:00: [id number] 00 Neuro confusion Neuro/Emot Resolve 2019-06-03 Lizzie present ion d 03-14 14:50:00 [place] 12:00: [id number] 00 Neuro anxiety Neuro/Emot Resolve 2019-06-03 Lizzie present ion d 03-14 14:50:00 [place] 12:00: [id number] 00 Neuro depressive Neuro/Emot Resolve 2019-06-03 Lizzie feelings ion d 03-14 14:50:00 [place] present 12:00: [id number] 00 Neuro impaired Neuro/Emot Resolve 2019-06-03 Lizzie decision-ma ion d 03-14 14:50:00 [facility] 12:00: [id number] 00 Neuro memory Neuro/Emot Resolve 2019-06-03 Lizzie deficit ion d 03-14 14:50:00 [place] needing 12:00: [id number] supervision 00 Neuro knowledge/s Neuro/Emot Resolve 2019-06-03 Lizzie kill ion d 03-14 14:50:00 [place] deficit: pt 12:00: [id number] 00 Activity ADL Activity Resolve 2019-04-01 Lizzie assistance d 03-14 09:50:00 [place] required 12:00: [id number] 00 Activity self-care Activity Resolve 2019-04-01 Lizzie deficit d 03-14 09:50:00 [place] 12:00: [id number] 00 Safety fall risk Safety Resolve 2019-06-06 Lizzie factor d 03-14 13:45:00 [place] present 12:00: [id number] 00 Safety risk for Safety Resolve 2019-06-06 Lizzie hospitaliza d 03-14 13:45:00 [place] tion 12:00: [id number] 00 Medication oral med Meds Resolve 2019-03-27 Lizzie assistance d 03-14 09:15:00 [place] required 12:00: [id number] 00 Medication knowledge/s Meds Active Lizzie kill 03-14 [place] deficit: pt 12:00: [id number] 00 Medication potential Meds Active Lizzie clinically 03-14 [place] significant 12:00: [id number] medication 00 issue Musculoskel transfer Musculoske Resolve 2019-03-20 Lizzie etal assistance letal d 03-14 09:30:00 [place] required 12:00: [id number] 00 Musculoskel requires Musculoske Resolve 2019-03-20 Lizzie etal human letal d 03-14 09:30:00 [place] assist to 12:00: [id number] leave home 00 Respiratory smoker Respirator Resolve [...] ion 2-13 [place] con 13:45: RN 00 Safety risk for Safety Active 2018-06 Lauren browne 2-16 [place] tion 14:10: t 00 [id number] Respiratory smoker Respirator Active 2018-06 Bárbara y 2-16 [place] 14:45: RN 00 Allergies, Adverse Reactions, Alerts Allergy [...] (SIG) Name Name Adderall 20 Adderall 20 No Ajay Unknown Unknown mg tablet mg tablet 03-14 MD,Kizzy ne buprenorphi buprenorphi No Ajay Unknown Unknown ne 8 ne 8 -20 Kizzy INGRAM mg-naloxone mg-naloxone ne 2 mg 2 mg sublingual sublingual film film Cymbalta 30 Cymbalta 30 No Ajay Unknown Unknown mg mg 03-14 Kizzy INGRAM capsule,del capsule,del ne ayed ayed release release Mavyret 100 Mavyret 100 2018- No Ajay Unknown Unknown mg-40 mg mg-40 mg 03-14- Kizzy INGRAM tablet tablet ne Narcan 4 Narcan 4 No Ajay Unknown Unknown mg/actuatio mg/actuatio 03-14 Kizzy INGRAM n nasal n nasal ne spray spray Ventolin Ventolin No Ajay Unknown Unknown HFA 90 HFA 90 03-14 Kizzy INGRAM mcg/actuati mcg/actuati ne on aerosol on aerosol inhaler inhaler Vitamin D2 Vitamin D2 2018- No Ajay Unknown Unknown 50,000 unit 50,000 unit 03-14 12-05 Kizzy INGRAM capsule capsule ne Vosevi 400 Vosevi 400 No Ajay Unknown Unknown mg-100 mg-100 03-14 Kizzy INGRAM mg-100 mg mg-100 mg ne tablet tablet nitrofurant nitrofurant 2018- Yes Ajay Unknown Unknown oin oin 03-23 10-08 Kizzy INGRAM ne l 100 mg l 100 mg capsule capsule flu vaccine flu vaccine 2018-06 Yes Ajay Unknown Unknown [id number](17yr [id number](17yr 0-10 Kizzy INGRAM up)rcmb(PF) up)rcmb(PF) ne 180 mcg(45 180 mcg(45 mcgx4)/0.5 mcgx4)/0.5 mL IM mL IM syringe syringe nitrofurant nitrofurant 2018-06- Yes Ajay Unknown Unknown oin oin 0 11-04 Kizzy INGRAMsta ne l 100 mg l 100 mg capsule capsule Vital Signs Vital Name Observation Time Observation Value Comments SYSTOLIC mm[Hg] 2019-06-10 18:09:24 142 mm[Hg] mm[Hg] Method: Sit SYSTOLIC mm[Hg] 2019-05-13 18:08:56 136 mm[Hg] mm[Hg] Method: Stand DIASTOLIC mm[Hg] 2019-06-10 18:09:24 84 mm[Hg] mm[Hg] Method: Sit DIASTOLIC mm[Hg] 2019-05-13 18:08:56 82 mm[Hg] mm[Hg] Method: Stand PULSE 2019-06-10 18:09:24 96 /min /min RESP RATE 2019-06-10 18:09:24 18 /min /min TEMP 2019-06-10 18:09:24 98.2 [degF] Procedures This patient has no known procedures. Results This patient has no known results.
--- OUTSIDE RECORDS SUMMARY | 2019-06-16 12:39 | XMS REPORT ---
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 Nicotine Nicotine Diagnosis Active Bárbara dependence, dependence, [place] cigarettes, cigarettes, RN uncomplicat uncomplicat ed ed Pain frequent Pain Mgmt Resolve 2019-03-27 Lizzie pain d 03-14 09:15:00 [place] 12:00: [id number] 00 Respiratory dyspnea Respirator Resolve 2019-04-10 Lizzie present y d 03-14 10:10:00 [place] 12:00: [id number] 00 Nutrition nutritional Nutrition Resolve 2019-04-15 Lizzie restriction d 03-14 14:05:00 [place] 12:00: [id number] 00 Elimination UTI within Eliminatio Resolve 2019-03-20 Lizzie past 14 n d 03-14 09:30:00 [place] days 12:00: [id number] 00 Elimination constipatio Eliminatio Resolve 2019-04-01 L[place]ie n n d 03-14 09:50:00 [place] 12:00: [id number] 00 Elimination urinary Eliminatio Resolve 2019-04-01 Lizzie incontinenc n d 03-14 09:50:00 [place] e 12:00: [id number] 00 Elimination knowledge/s Eliminatio Resolve 2019-04-01 Lizzie kill n d 03-14 09:50:00 [place] deficit: pt 12:00: [id number] 00 Neuro confusion Neuro/Emot Resolve 2019-06-03 Lizzie present ion d 03-14 14:50:00 [place] 12:00: [id number] 00 Neuro anxiety Neuro/Emot Resolve 2019-06-03 Lizzie present ion d 03-14 14:50:00 [place] 12:00: [id number] 00 Neuro depressive Neuro/Emot Resolve 2019-06-03 Lizzie feelings ion d 03-14 14:50:00 [place] present 12:00: [id number] 00 Neuro impaired Neuro/Emot Resolve 2019-06-03 Lizzie decision-ma ion d 03-14 14:50:00 [facility] 12:00: [id number] 00 Neuro memory Neuro/Emot Resolve 2019-06-03 Lizzie deficit ion d 03-14 14:50:00 [place] needing 12:00: [id number] supervision 00 Neuro knowledge/s Neuro/Emot Resolve 2019-06-03 Lizzie kill ion d 03-14 14:50:00 [place] deficit: pt 12:00: [id number] 00 Activity ADL Activity Resolve 2019-04-01 Lizzie assistance d 03-14 09:50:00 [place] required 12:00: [id number] 00 Activity self-care Activity Resolve 2019-04-01 Lizzie deficit d 03-14 09:50:00 [place] 12:00: [id number] 00 Safety fall risk Safety Resolve 2019-06-06 Lizzie factor d 03-14 13:45:00 [place] present 12:00: [id number] 00 Safety risk for Safety Resolve 2019-06-06 Lizzie hospitaliza d 03-14 13:45:00 [place] tion 12:00: [id number] 00 Medication oral med Meds Resolve 2019-03-27 Lizzie assistance d 03-14 09:15:00 [place] required 12:00: [id number] 00 Medication knowledge/s Meds Active Lizzie kill 03-14 [place] deficit: pt 12:00: [id number] 00 Medication potential Meds Active Lizzie clinically 03-14 [place] significant 12:00: [id number] medication 00 issue Musculoskel transfer Musculoske Resolve 2019-03-20 Lizzie etal assistance letal d 03-14 09:30:00 [place] required 12:00: [id number] 00 Musculoskel requires Musculoske Resolve 2019-03-20 Lizzie etal human letal d 03-14 09:30:00 [place] assist to 12:00: [id number] leave home 00 Respiratory smoker Respirator Resolve [...] ion 2-13 [place] con 13:45: RN 00 Respiratory smoker Respirator Active 2018-06 Bárbara y 2-16 [place] 14:45: RN 00 Safety risk for Safety Active 2018-06 Bárbara hospitaliza 2-16 [place] tion 14:45: RN 00 Allergies, Adverse Reactions, Alerts [...] Ajay Unknown Unknown mg tablet mg tablet 9 Kizzy INGRAM buprenorphi buprenorphi Yes Ajay Unknown Unknown ne 8 ne 8 03-14 Kizzy INGRAM mg-naloxone mg-naloxone ne 2 mg 2 mg sublingual sublingual film film Cymbalta 30 Cymbalta 30 Yes Ajay Unknown Unknown mg mg - Kizzy INGRAM capsule,del capsule,del ne ayed ayed [...] flu vaccine 2018-06 Yes Ajay Unknown Unknown [id number](17yr [id number](17yr 0-10 Kizzy INGRAM up)rcmb(PF) up)rcmb(PF) ne 180 [...]
--- OUTSIDE RECORDS SUMMARY | 2019-06-16 12:39 | XMS REPORT ---
:1965 Author Organization [facility] Care Team Providers Name Role Phone Unavailable Unavailable Unavailable Problems Condition Condition Condition Status Onset Resolution Last Treating Comments Name Details Category Date Date Treatment Clinician Date Pain frequent Pain Mgmt Resolve 2019-03-27 Lizzie pain d 03-14 09:15:00 [place] 12:00: [id number] 00 Respiratory dyspnea Respirator Resolve 2019-04-10 Lizzie present y d 03-14 10:10:00 [place] 12:00: [id number] 00 Nutrition nutritional Nutrition Resolve 2019-04-15 Lizzie restriction d 03-14 14:05:00 [place] s 12:00: [id number] 00 Elimination UTI within Eliminatio Resolve 2019-03-20 Lizzie past 14 n d 03-14 09:30:00 [place] days 12:00: [id number] 00 Elimination constipatio Eliminatio Resolve 2019-04-01 Lizzie n n d 03-14 09:50:00 [place] 12:00: [id number] 00 Elimination urinary Eliminatio Resolve 2019-04-01 Lizzie incontinenc n d 03-14 09:50:00 [place] e 12:00: [id number] 00 Elimination knowledge/s Eliminatio Resolve 2019-04-01 Lizzie kill n d 03-14 09:50:00 [place] deficit: pt 12:00: [id number] 00 Neuro confusion Neuro/Emot Active Lizzie present ion 03-14 Nick 12:00: [id number] 00 Neuro anxiety Neuro/Emot Active Lizzie present ion 03-14 Nick 12:00: [id number] 00 Neuro depressive Neuro/Emot Active Lizzie feelings ion 03-14 [place] present 12:00: [id number] 00 Neuro impaired Neuro/Emot Active Lizzie decision-ma ion 03-14 [place] con 12:00: [id number] 00 Neuro memory Neuro/Emot Active Lizzie deficit ion 03-14 [place] needing 12:00: [id number] supervision 00 Neuro knowledge/s Neuro/Emot Active Lizzie kill ion 03-14 [place] deficit: pt 12:00: [id number] 00 Activity ADL Activity Resolve 2019-04-01 Lizzie assistance d 03-14 09:50:00 [place] required 12:00: [id number] 00 Activity self-care Activity Resolve 2019-04-01 Lizzie deficit d 03-14 09:50:00 [place] 12:00: [id number] 00 Safety fall risk Safety Active Lizzie factor 03-14 [place] present 12:00: [id number] 00 Safety risk for Safety Active Lizzie hospitaliza 03-14 [place] tion 12:00: [id number] 00 Medication oral med Meds Resolve 2019-03-27 Lizzie assistance d 03-14 09:15:00 [place] required 12:00: [id number] 00 Medication knowledge/s Meds Active Lizzie kill 03-14 [place] deficit: pt 12:00: [id number] 00 Medication potential Meds Active Lizzie clinically 03-14 [place] significant 12:00: [id number] medication 00 issue Musculoskel transfer Musculoske Resolve 2019-03-20 Lizzie etal assistance letal d 03-14 09:30:00 [place] required 12:00: [id number] 00 Musculoskel requires Musculoske Resolve 2019-03-20 Lizzie etal human letal d 03-14 09:30:00 [place] assist to 12:00: [id number] leave home 00 Respiratory smoker Respirator Active [...] flu vaccine 2018-06 Yes Ajay Unknown Unknown [id number](17yr [id number](17yr 0-10 Kizzy INGRAM up)rcmb(PF) up)rcmb(PF) ne 180 [...]
--- OUTSIDE RECORDS SUMMARY | 2019-06-16 12:39 | XMS REPORT ---
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 Nicotine Nicotine Diagnosis Active Bárbara dependence, dependence, [place] cigarettes, cigarettes, RN uncomplicat uncomplicat ed ed Pain frequent Pain Mgmt Resolve 2019-03-27 Lizzie pain d 03-14 09:15:00 [place] 12:00: [id number] 00 Respiratory dyspnea Respirator Resolve 2019-04-10 Lizzie present y d 03-14 10:10:00 [place] 12:00: [id number] 00 Nutrition nutritional Nutrition Resolve 2019-04-15 Lizzie restriction d 03-14 14:05:00 [place] 12:00: [id number] 00 Elimination UTI within Eliminatio Resolve 2019-03-20 Lizzie past 14 n d 03-14 09:30:00 [place] days 12:00: [id number] 00 Elimination constipatio Eliminatio Resolve 2019-04-01 [place] n n d 03-14 09:50:00 [place] 12:00: [id number] 00 Elimination urinary Eliminatio Resolve 2019-04-01 Lizzie incontinenc n d 03-14 09:50:00 [place] e 12:00: [id number] 00 Elimination knowledge/s Eliminatio Resolve 2019-04-01 L[place] kill n d 03-14 09:50:00 [place] deficit: pt 12:00: [id number] 00 Neuro confusion Neuro/Emot Resolve 2019-06-03 [place] present ion d 03-14 14:50:00 [place] 12:00: [id number] 00 Neuro anxiety Neuro/Emot Resolve 2019-06-03 [place] present ion d 03-14 14:50:00 [place] 12:00: [id number] 00 Neuro depressive Neuro/Emot Resolve 2019-06-03 Lizzie feelings ion d 03-14 14:50:00 [place] present 12:00: [id number] 00 Neuro impaired Neuro/Emot Resolve 2019-06-03 [place] decision-ma ion d 03-14 14:50:00 [facility] 12:00: [id number] 00 Neuro memory Neuro/Emot Resolve 2019-06-03 [place] deficit ion d 03-14 14:50:00 [place] needing 12:00: [id number] supervision 00 Neuro knowledge/s Neuro/Emot Resolve 2019-06-03 L[place] kill ion d 03-14 14:50:00 [place] deficit: pt 12:00: [id number] 00 Activity ADL Activity Resolve 2019-04-01 Lizz[place] assistance d 03-14 09:50:00 [place] required 12:00: [id number] 00 Activity self-care Activity Resolve 2019-04-01 L[place] deficit d 03-14 09:50:00 [place] 12:00: [id number] 00 Safety fall risk Safety Resolve 2019-06-06 Lizzie factor d 03-14 13:45:00 [place] present 12:00: [id number] 00 Safety risk for Safety Resolve 2019-06-06 Lizzie hospitaliza d 03-14 13:45:00 [place] tion 12:00: [id number] 00 Medication oral med Meds Resolve 2019-03-27 Lizzie assistance d 03-14 09:15:00 [place] required 12:00: [id number] 00 Medication knowledge/s Meds Active Lizzie kill 03-14 [place] deficit: pt 12:00: [id number] 00 Medication potential Meds Active Lizzie clinically 03-14 [place] significant 12:00: [id number] medication 00 issue Musculoskel transfer Musculoske Resolve 2019-03-20 L[place] etal assistance letal d 03-14 09:30:00 [place] required 12:00: [id number] 00 Musculoskel requires Musculoske Resolve 2019-03-20 Lizzie etal human letal d 03-14 09:30:00 [place] assist to 12:00: [id number] leave home 00 Respiratory smoker Respirator Resolve [...] RN 00 Neuro anxiety Neuro/Emot Active 2018-06 Brábara present ion 2-13 [place] 13:45: RN 00 [...] flu vaccine 2018-06 Yes Ajay Unknown Unknown [id number](17yr [id number](17yr 0-10 Kizzy INGRAM up)rcmb(PF) up)rcmb(PF) ne 180 [...]
--- OUTSIDE RECORDS SUMMARY | 2019-06-16 12:39 | XMS REPORT ---
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 Nicotine Nicotine Diagnosis Active Bárbara dependence, dependence, [place] cigarettes, cigarettes, RN uncomplicat uncomplicat ed ed Pain frequent Pain Mgmt Resolve 2019-03-27 Lizzie pain d 03-14 09:15:00 [place] 12:00: [id number] 00 Respiratory dyspnea Respirator Resolve 2019-04-10 Lizzie present y d 03-14 10:10:00 [place] 12:00: [id number] 00 Nutrition nutritional Nutrition Resolve 2019-04-15 Lizzie restriction d 03-14 14:05:00 [place] 12:00: [id number] 00 Elimination UTI within Eliminatio Resolve 2019-03-20 Lizzie past 14 n d 03-14 09:30:00 [place] days 12:00: [id number] 00 Elimination constipatio Eliminatio Resolve 2019-04-01 Lizzie n n d 03-14 09:50:00 [place] 12:00: [id number] 00 Elimination urinary Eliminatio Resolve 2019-04-01 Lizzie incontinenc n d 03-14 09:50:00 [place] e 12:00: [id number] 00 Elimination knowledge/s Eliminatio Resolve 2019-04-01 Lizzie kill n d 03-14 09:50:00 [place] deficit: pt 12:00: [id number] 00 Neuro confusion Neuro/Emot Resolve 2019-06-03 Lizzie present ion d 03-14 14:50:00 [place] 12:00: [id number] 00 Neuro anxiety Neuro/Emot Resolve 2019-06-03 Lizzie present ion d 03-14 14:50:00 [place] 12:00: [id number] 00 Neuro depressive Neuro/Emot Resolve 2019-06-03 Lizzie feelings ion d 03-14 14:50:00 [place] present 12:00: [id number] 00 Neuro impaired Neuro/Emot Resolve 2019-06-03 Lizzie decision-ma ion d 03-14 14:50:[address] [facility] 12:00: [id number] 00 Neuro memory Neuro/Emot Resolve 2019-06-03 Lizzie deficit ion d 03-14 14:50:00 [place] needing 12:00: [id number] supervision 00 Neuro knowledge/s Neuro/Emot Resolve 2019-06-03 Lizzie kill ion d 03-14 14:50:00 [place] deficit: pt 12:00: [id number] 00 Activity ADL Activity Resolve 2019-04-01 Lizzie assistance d 03-14 09:50:00 [place] required 12:00: [id number] 00 Activity self-care Activity Resolve 2019-04-01 Lizzie deficit d 03-14 09:50:00 [place] 12:00: [id number] 00 Safety fall risk Safety Resolve 2019-06-06 Lizzie factor d 03-14 13:45:00 [place] present 12:00: [id number] 00 Safety risk for Safety Resolve 2019-06-06 Lizzie hospitaliza d 03-14 13:45:00 [place] tion 12:00: [id number] 00 Medication oral med Meds Resolve 2019-03-27 Lizzie assistance d 03-14 09:15:00 [place] required 12:00: [id number] 00 Medication knowledge/s Meds Active Lizzie kill 03-14 [place] deficit: pt 12:00: [id number] 00 Medication potential Meds Active Lizzie clinically 03-14 Nick significant 12:00: [id number] medication 00 issue Musculoskel transfer Musculoske Resolve 2019-03-20 Lizzie etal assistance letal d 03-14 09:30:00 [place] required 12:00: [id number] 00 Musculoskel requires Musculoske Resolve 2019-03-20 Lizzie etal human letal d 03-14 09:30:00 [place] assist to 12:00: [id number] leave home 00 Respiratory smoker Respirator Resolve [...] flu vaccine 2018-06 Yes Ajay Unknown Unknown [id number](17yr [id number](17yr 0-10 Kizzy INGRAM up)rcmb(PF) up)rcmb(PF) ne 180 [...]
--- OUTSIDE RECORDS SUMMARY | 2019-06-16 12:39 | XMS REPORT ---
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 Nicotine Nicotine Diagnosis Active Bárbara dependence, dependence, [place] cigarettes, cigarettes, RN uncomplicat uncomplicat ed ed Pain frequent Pain Mgmt Resolve 2019-03-27 Lizzie pain d 03-14 09:15:00 [place] 12:00: [id number] 00 Respiratory dyspnea Respirator Resolve 2019-04-10 Lizzie present y d 03-14 10:10:00 [place] 12:00: [id number] 00 Nutrition nutritional Nutrition Resolve 2019-04-15 Lizzie restriction d 03-14 14:05:00 [place] 12:00: [id number] 00 Elimination UTI within Eliminatio Resolve 2019-03-20 Lizzie past 14 n d 03-14 09:30:00 [place] days 12:00: [id number] 00 Elimination constipatio Eliminatio Resolve 2019-04-01 Lizzie n n d 03-14 09:50:00 [place] 12:00: [id number] 00 Elimination urinary Eliminatio Resolve 2019-04-01 Lizzie incontinenc n d 03-14 09:50:00 [place] e 12:00: [id number] 00 Elimination knowledge/s Eliminatio Resolve 2019-04-01 Lizzie kill n d 03-14 09:50:00 [place] deficit: pt 12:00: [id number] 00 Neuro confusion Neuro/Emot Resolve 2019-06-03 Lizzie present ion d 03-14 14:50:00 [place] 12:00: [id number] 00 Neuro anxiety Neuro/Emot Resolve 2019-06-03 Lizzie present ion d 03-14 14:50:00 [place] 12:00: [id number] 00 Neuro depressive Neuro/Emot Resolve 2019-06-03 Lizzie feelings ion d 03-14 14:50:00 [place] present 12:00: [id number] 00 Neuro impaired Neuro/Emot Resolve 2019-06-03 Lizzie decision-ma ion d 03-14 14:50:00 [facility] 12:00: [id number] 00 Neuro memory Neuro/Emot Resolve 2019-06-03 Lizzie deficit ion d 03-14 14:50:00 [place] needing 12:00: [id number] supervision 00 Neuro knowledge/s Neuro/Emot Resolve 2019-06-03 Lizzie kill ion d 03-14 14:50:00 [place] deficit: pt 12:00: [id number] 00 Activity ADL Activity Resolve 2019-04-01 Lizzie assistance d 03-14 09:50:00 [place] required 12:00: [id number] 00 Activity self-care Activity Resolve 2019-04-01 Lizzie deficit d 03-14 09:50:00 [place] 12:00: [id number] 00 Safety fall risk Safety Resolve 2019-06-06 Lizzie factor d 03-14 13:45:00 [place] present 12:00: [id number] 00 Safety risk for Safety Resolve 2019-06-06 Lizzie hospitaliza d 03-14 13:45:00 [place] tion 12:00: [id number] 00 Medication oral med Meds Resolve 2019-03-27 Lizzie assistance d 03-14 09:15:00 [place] required 12:00: [id number] 00 Medication knowledge/s Meds Active Lizzie kill 03-14 [place] deficit: pt 12:00: [id number] 00 Medication potential Meds Active Lizzie clinically 03-14 Nick significant 12:00: [id number] medication 00 issue Musculoskel transfer Musculoske Resolve 2019-03-20 Lizzie etal assistance letal d 03-14 09:30:00 [place] required 12:00: [id number] 00 Musculoskel requires Musculoske Resolve 2019-03-20 Lizzie etal human letal d 03-14 09:30:00 [place] assist to 12:00: [id number] leave home 00 Respiratory smoker Respirator Resolve [...] Unknown Unknown mg tablet mg tablet 03-14 Kizzy INGRAM buprenorphi buprenorphi No Ajay Unknown Unknown ne 8 ne 8 03-14 Kizzy INGRAM mg-naloxone mg-naloxone ne 2 mg 2 mg sublingual sublingual film film Cymbalta 30 Cymbalta 30 No Ajay Unknown Unknown mg mg - ,Kizzy capsule,del capsule,del ne ayed ayed release [...] flu vaccine 2018-06 Yes Ajay Unknown Unknown [id number](17yr [id number](17yr 0-10 Kizzy INGRAM up)rcmb(PF) up)rcmb(PF) ne 180 [...]
--- OUTSIDE RECORDS SUMMARY | 2019-06-16 12:39 | XMS REPORT ---
:1965 Author Organization [facility] Care Team Providers Name Role Phone Unavailable Unavailable Unavailable Problems Condition Condition Condition Status Onset Resolution Last Treating Comments Name Details Category Date Date Treatment Clinician Date Pain frequent Pain Mgmt Resolve 2019-03-27 Lizzie pain d 03-14 09:15:00 [place] 12:00: [id number] 00 Respiratory dyspnea Respirator Resolve 2019-04-10 Lizzie present y d 03-14 10:10:00 [place] 12:00: [id number] 00 Nutrition nutritional Nutrition Resolve 2019-04-15 Lizzie restriction d 03-14 14:05:00 [place] s 12:00: [id number] 00 Elimination UTI within Eliminatio Resolve 2019-03-20 Lizzie past 14 n d 03-14 09:30:00 [place] days 12:00: [id number] 00 Elimination constipatio Eliminatio Resolve 2019-04-01 Lizzie n n d 03-14 09:50:00 [place] 12:00: [id number] 00 Elimination urinary Eliminatio Resolve 2019-04-01 Lizzie incontinenc n d 03-14 09:50:00 [place] e 12:00: [id number] 00 Elimination knowledge/s Eliminatio Resolve 2019-04-01 Lizzie kill n d 03-14 09:50:00 [place] deficit: pt 12:00: [id number] 00 Neuro confusion Neuro/Emot Resolve 2019-06-03 Lizzie present ion d 03-14 14:50:00 [place] 12:00: [id number] 00 Neuro anxiety Neuro/Emot Resolve 2019-06-03 Lizzie present ion d 03-14 14:50:00 [place] 12:00: [id number] 00 Neuro depressive Neuro/Emot Resolve 2019-06-03 Lizzie feelings ion d 03-14 14:50:00 [place] present 12:00: [id number] 00 Neuro impaired Neuro/Emot Resolve 2018-2019-06-03 Lizzie decision-ma ion d 03-14 14:50:00 [place] con 12:00: [id number] 00 Neuro memory Neuro/Emot Resolve 2019-06-03 Lizz[place] deficit ion d 03-14 14:50:00 [place] needing 12:00: [id number] supervision 00 Neuro knowledge/s Neuro/Emot Resolve 2019-06-03 Lizzie kill ion d 03-14 14:50:00 [place] deficit: pt 12:00: [id number] 00 Activity ADL Activity Resolve 2019-04-01 Lizzie assistance d 03-14 09:50:00 [place] required 12:00: [id number] 00 Activity self-care Activity Resolve 2019-04-01 Lizz[place] deficit d 03-14 09:50:00 [place] 12:00: [id number] 00 Safety fall risk Safety Active Lizzie factor 03-14 [place] present 12:00: [id number] 00 Safety risk for Safety Active Lizzie hospitaliza 03-14 [place] tion 12:00: [id number] 00 Medication oral med Meds Resolve 2019-03-27 Lizzie assistance d 03-14 09:15:00 [place] required 12:00: [id number] 00 Medication knowledge/s Meds Active Lizzie kill 03-14 [place] deficit: pt 12:00: [id number] 00 Medication potential Meds Active Lizzie clinically 03-14 [place] significant 12:00: [id number] medication 00 issue Musculoskel transfer Musculoske Resolve 2019-03-20 Lizzie etal assistance letal d 03-14 09:30:00 [place] required 12:00: [id number] 00 Musculoskel requires Musculoske Resolve 2019-03-20 Lizzie etal human letal d 03-14 09:30:00 [place] assist to 12:00: [id number] leave home 00 Respiratory smoker Respirator Resolve 2019-05-29 Bárbara y d 03-20 14:50:00 [place] 09:30: RN 00 Respiratory lung [...] Date Clinician Sulfa Allergen Active Unknown Reaction Os Beam (Sulfonamide Group Unknown 7-24 Antibiotics) Penicillins [...] mg tablet 03-14 Kizzy INGRAM buprenorphi buprenorphi Yes Ajay Unknown Unknown ne 8 ne 8 03-14 Kizzy INGRAM mg-naloxone mg-naloxone ne 2 mg 2 mg sublingual sublingual film film Cymbalta 30 Cymbalta 30 Yes Ajay Unknown Unknown mg mg 03-14 Kizzy [...] 2018- Yes Ajay Unknown Unknown oin oin 9 10-08 Kizzy INGRAMrysthernan anandrysthernan ne l 100 mg l 100 mg capsule capsule flu vaccine flu vaccine 2018-06 Yes Ajay Unknown Unknown [id number](18yr [id number](18yr 0-10 Kizzy INGRAM up)rcmb(PF) up)rcmb(PF) ne 180 mcg(45 180 mcg(45 mcgx4)/0.5 mcgx4)/0.5 mL IM mL IM syringe syringe nitrofurant nitrofurant 2018-06- Yes Ajay Unknown Unknown oin oin 0-28 11-04 Kizzy INGRAMsthernan ne l 100 mg l 100 mg capsule capsule Vital Signs Vital Name Observation Time Observation Value Comments SYSTOLIC mm[Hg] 2019-06-04 18:09:18 134 mm[Hg] mm[Hg] Method: Sit SYSTOLIC mm[Hg] 2019-05-13 18:08:56 136 mm[Hg] mm[Hg] Method: Stand DIASTOLIC mm[Hg] 2019-06-04 18:09:18 82 mm[Hg] mm[Hg] Method: Sit DIASTOLIC mm[Hg] 2019-05-13 18:08:56 82 mm[Hg] mm[Hg] Method: Stand PULSE 2019-06-04 18:09:18 81 /min /min RESP RATE 2019-06-04 18:09:18 16 /min /min TEMP 2019-06-04 18:09:18 97.8 [degF] Procedures This patient has no known procedures. Results This patient has no known results.
--- OUTSIDE RECORDS SUMMARY | 2019-06-16 12:39 | XMS REPORT ---
:1965 Author Organization [facility] Care Team Providers Name Role Phone Unavailable Unavailable Unavailable Problems Condition Condition Condition Status Onset Resolution Last Treating Comments Name Details Category Date Date Treatment Clinician Date Pain frequent Pain Mgmt Resolve 2019-03-27 Lizzie pain d 03-14 09:15:00 [place] 12:00: [id number] 00 Respiratory dyspnea Respirator Resolve 2019-04-10 Lizzie present y d 03-14 10:10:00 [place] 12:00: [id number] 00 Nutrition nutritional Nutrition Resolve 2019-04-15 Lizzie restriction d 03-14 14:05:00 [place] s 12:00: [id number] 00 Elimination UTI within Eliminatio Resolve 2019-03-20 Lizzie past 14 n d 03-14 09:30:00 [place] days 12:00: [id number] 00 Elimination constipatio Eliminatio Resolve 2019-04-01 Lizzie n n d 03-14 09:50:00 [place] 12:00: [id number] 00 Elimination urinary Eliminatio Resolve 2019-04-01 Lizzie incontinenc n d 03-14 09:50:00 [place] e 12:00: [id number] 00 Elimination knowledge/s Eliminatio Resolve 2019-04-01 Lizzie kill n d 03-14 09:50:00 [place] deficit: pt 12:00: [id number] 00 Neuro confusion Neuro/Emot Resolve 2019-06-03 Lizzie present ion d 03-14 14:50:00 [place] 12:00: [id number] 00 Neuro anxiety Neuro/Emot Resolve 2019-06-03 Lizzie present ion d 03-14 14:50:00 [place] 12:00: [id number] 00 Neuro depressive Neuro/Emot Resolve 2019-06-03 Lizzie feelings ion d 03-14 14:50:00 [place] present 12:00: [id number] 00 Neuro impaired Neuro/Emot Resolve 2018-2019-06-03 Lizzie decision-ma ion d 03-14 14:50:00 [place] con 12:00: [id number] 00 Neuro memory Neuro/Emot Resolve 2019-06-03 Lizzie deficit ion d 03-14 14:50:00 [place] needing 12:00: [id number] supervision 00 Neuro knowledge/s Neuro/Emot Resolve 2019-06-03 Lizzie kill ion d 03-14 14:50:00 [place] deficit: pt 12:00: [id number] 00 Activity ADL Activity Resolve 2019-04-01 Lizzie assistance d 03-14 09:50:00 [place] required 12:00: [id number] 00 Activity self-care Activity Resolve 2019-04-01 Lizzie deficit d 03-14 09:50:00 [place] 12:00: [id number] 00 Safety fall risk Safety Active Lizzie factor 03-14 [place] present 12:00: [id number] 00 Safety risk for Safety Active Lizzie hospitaliza 03-14 [place] tion 12:00: [id number] 00 Medication oral med Meds Resolve 2019-03-27 Lizzie assistance d 03-14 09:15:00 [place] required 12:00: [id number] 00 Medication knowledge/s Meds Active Lizzie kill 03-14 [place] deficit: pt 12:00: [id number] 00 Medication potential Meds Active Lizzie clinically 03-14 [place] significant 12:00: [id number] medication 00 issue Musculoskel transfer Musculoske Resolve 2019-03-20 Lizzie etal assistance letal d 03-14 09:30:00 [place] required 12:00: [id number] 00 Musculoskel requires Musculoske Resolve 2019-03-20 Lizzie etal human letal d 03-14 09:30:00 [place] assist to 12:00: [id number] leave home 00 Respiratory smoker Respirator Resolve [...] release Mavyret 100 Mavyret 100 2018- Yes Ajya Unknown Unknown mg-40 mg mg-40 mg 03-14 [...] flu vaccine 2018-06 Yes Ajay Unknown Unknown [id number](17yr [id number](17yr 0-10 Kizzy INGRAM up)rcmb(PF) up)rcmb(PF) ne 180 [...]
--- OUTSIDE RECORDS SUMMARY | 2019-06-16 12:39 | XMS REPORT ---
:1965 Author Organization [facility] Care Team Providers Name Role Phone Unavailable Unavailable Unavailable Problems Condition Condition Condition Status Onset Resolution Last Treating Comments Name Details Category Date Date Treatment Clinician Date Pain frequent Pain Mgmt Resolve 2019-03-27 Lizzie pain d 03-14 09:15:00 [place] 12:00: [id number] 00 Respiratory dyspnea Respirator Resolve 2019-04-10 Lizzie present y d 03-14 10:10:00 [place] 12:00: [id number] 00 Nutrition nutritional Nutrition Resolve 2019-04-15 Lizzie restriction d 03-14 14:05:00 [place] s 12:00: [id number] 00 Elimination UTI within Eliminatio Resolve 2019-03-20 Lizzie past 14 n d 03-14 09:30:00 [place] days 12:00: [id number] 00 Elimination constipatio Eliminatio Resolve 2019-04-01 Lizzie n n d 03-14 09:50:00 [place] 12:00: [id number] 00 Elimination urinary Eliminatio Resolve 2019-04-01 Lizzie incontinenc n d 03-14 09:50:00 [place] e 12:00: [id number] 00 Elimination knowledge/s Eliminatio Resolve 2019-04-01 Lizzie kill n d 03-14 09:50:00 [place] deficit: pt 12:00: [id number] 00 Neuro confusion Neuro/Emot Active Lizzie present ion 03-14 [place] 12:00: [id number] 00 Neuro anxiety Neuro/Emot Active Lizzie present ion 03-14 Nick 12:00: [id number] 00 Neuro depressive Neuro/Emot Active Lizzie feelings ion 03-14 [place] present 12:00: [id number] 00 Neuro impaired Neuro/Emot Active Lizzie decision-ma ion 03-14 [place] con 12:00: [id number] 00 Neuro memory Neuro/Emot Active Lizzie deficit ion - [place] needing 12:00: [id number] supervision 00 Neuro knowledge/s Neuro/Emot Active Lizzie kill ion - [place] deficit: pt 12:00: [id number] 00 Activity ADL Activity Resolve 2019-04-01 Lizzie assistance d 03-14 09:50:00 [place] required 12:00: [id number] 00 Activity self-care Activity Resolve 2019-04-01 Lizzie deficit d 03-14 09:50:00 [place] 12:00: [id number] 00 Safety fall risk Safety Active Lizzie factor 03-14 [place] present 12:00: [id number] 00 Safety risk for Safety Active Lizzie hospitaliza 03-14 [place] tion 12:00: [id number] 00 Medication oral med Meds Resolve 2019-03-27 Lizzie assistance d 03-14 09:15:00 [place] required 12:00: [id number] 00 Medication knowledge/s Meds Active Lizzie kill 03-14 [place] deficit: pt 12:00: [id number] 00 Medication potential Meds Active Lizzie clinically 03-14 [place] significant 12:00: [id number] medication 00 issue Musculoskel transfer Musculoske Resolve 2019-03-20 Lizzie etal assistance letal d 03-14 09:30:00 [place] required 12:00: [id number] 00 Musculoskel requires Musculoske Resolve 2019-03-20 Lizzie etal human letal d 03-14 09:30:00 [place] assist to 12:00: [id number] leave home 00 Respiratory smoker Respirator Resolve [...] Unknown oin oin 03-23 10-08 Kizzy INGRAMsthernan ne l 100 mg l 100 mg capsule capsule flu vaccine flu vaccine 2018-06 Yes Ajay Unknown Unknown [id number](17yr [id number](17yr 0-10 Kizzy INGRAM up)rcmb(PF) up)rcmb(PF) ne 180 [...]
--- OUTSIDE RECORDS SUMMARY | 2019-06-16 12:39 | XMS REPORT ---
:1965 Author Organization [facility] Care Team Providers Name Role Phone Unavailable Unavailable Unavailable Problems Condition Condition Condition Status Onset Resolution Last Treating Comments Name Details Category Date Date Treatment Clinician Date Pain frequent Pain Mgmt Resolve 2019-03-27 Lizzie pain d 03-14 09:15:00 [place] 12:00: [id number] 00 Respiratory dyspnea Respirator Resolve 2019-04-10 Lizzie present y d 03-14 10:10:00 [place] 12:00: [id number] 00 Nutrition nutritional Nutrition Resolve 2019-04-15 Lizzie restriction d 03-14 14:05:00 [place] s 12:00: [id number] 00 Elimination UTI within Eliminatio Resolve 2019-03-20 Lizzie past 14 n d 03-14 09:30:00 [place] days 12:00: [id number] 00 Elimination constipatio Eliminatio Resolve 2019-04-01 Lizzie n n d 03-14 09:50:00 [place] 12:00: [id number] 00 Elimination urinary Eliminatio Resolve 2019-04-01 Lizzie incontinenc n d 03-14 09:50:00 [place] e 12:00: [id number] 00 Elimination knowledge/s Eliminatio Resolve 2019-04-01 Lizzie kill n d 03-14 09:50:00 [place] deficit: pt 12:00: [id number] 00 Neuro confusion Neuro/Emot Active Lizzie present ion 03-14 [place] 12:00: [id number] 00 Neuro anxiety Neuro/Emot Active Lizzie present ion 03-14 [place] 12:00: [id number] 00 Neuro depressive Neuro/Emot Active Lizzie feelings ion 03-14 [place] present 12:00: [id number] 00 Neuro impaired Neuro/Emot Active Lizzie decision-ma ion 03-14 [place] con 12:00: [id number] 00 Neuro memory Neuro/Emot Active Lizzie deficit ion 03-14 [place] needing 12:00: [id number] supervision 00 Neuro knowledge/s Neuro/Emot Active Lizzie kill ion 03-14 [place] deficit: pt 12:00: [id number] 00 Activity ADL Activity Resolve 2019-04-01 Lizzie assistance d 03-14 09:50:00 [place] required 12:00: [id number] 00 Activity self-care Activity Resolve 2019-04-01 Lizzie deficit d 03-14 09:50:00 [place] 12:00: [id number] 00 Safety fall risk Safety Active Lizzie factor 03-14 [place] present 12:00: [id number] 00 Safety risk for Safety Active Lizzie hospitaliza 03-14 [place] tion 12:00: [id number] 00 Medication oral med Meds Resolve 2019-03-27 Lizzie assistance d 03-14 09:15:00 [place] required 12:00: [id number] 00 Medication knowledge/s Meds Active Lizzie kill 03-14 [place] deficit: pt 12:00: [id number] 00 Medication potential Meds Active Lizzie clinically 03-14 [place] significant 12:00: [id number] medication 00 issue Musculoskel transfer Musculoske Resolve 2019-03-20 Lizzie etal assistance letal d 03-14 09:30:00 [place] required 12:00: [id number] 00 Musculoskel requires Musculoske Resolve 2019-03-20 Lizzie etal human letal d 03-14 09:30:00 [place] assist to 12:00: [id number] leave home 00 Respiratory smoker Respirator Active [...] Unknown 7-24 methotrexate Base Active Unknown Reaction Os Beam Ingredient Unknown 7-24 iodine Base Active [...] flu vaccine 2018-06 Yes Ajay Unknown Unknown [id number](17yr [id number](17yr 0-10 Kizzy INGRAM up)rcmb(PF) up)rcmb(PF) ne 180 [...]
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
--- OUTSIDE RECORDS SUMMARY | 2019-06-16 12:39 | XMS REPORT ---
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 Nicotine Nicotine Diagnosis Active Bár[place] dependence, dependence, [place] cigarettes, cigarettes, RN uncomplicat uncomplicat ed ed Pain frequent Pain Mgmt Resolve 2019-03-27 Lizzie pain d 03-14 09:15:00 [place] 12:00: [id number] 00 Respiratory dyspnea Respirator Resolve 2019-04-10 Lizzie present y d 03-14 10:10:00 [place] 12:00: [id number] 00 Nutrition nutritional Nutrition Resolve 2019-04-15 Lizzie restriction d 03-14 14:05:00 [place] 12:00: [id number] 00 Elimination UTI within Eliminatio Resolve 2019-03-20 Lizzie past 14 n d 03-14 09:30:00 [place] days 12:00: [id number] 00 Elimination constipatio Eliminatio Resolve 2019-04-01 Lizzie n n d 03-14 09:50:00 [place] 12:00: [id number] 00 Elimination urinary Eliminatio Resolve 2019-04-01 Lizzie incontinenc n d 03-14 09:50:00 [place] e 12:00: [id number] 00 Elimination knowledge/s Eliminatio Resolve 2019-04-01 Lizzie kill n d 03-14 09:50:00 [place] deficit: pt 12:00: [id number] 00 Neuro confusion Neuro/Emot Resolve 2019-06-03 Lizzie present ion d 03-14 14:50:00 [place] 12:00: [id number] 00 Neuro anxiety Neuro/Emot Resolve 2019-06-03 [place] present ion d 03-14 14:50:00 [place] 12:00: [id number] 00 Neuro depressive Neuro/Emot Resolve 2019-06-03 Lizzie feelings ion d 03-14 14:50:00 [place] present 12:00: [id number] 00 Neuro impaired Neuro/Emot Resolve 2019-06-03 Lizzie decision-ma ion d 03-14 14:50:00 [facility] 12:00: [id number] 00 Neuro memory Neuro/Emot Resolve 2019-06-03 Lizzie deficit ion d 03-14 14:50:00 [place] needing 12:00: [id number] supervision 00 Neuro knowledge/s Neuro/Emot Resolve 2019-06-03 Lizzie kill ion d 03-14 14:50:00 [place] deficit: pt 12:00: [id number] 00 Activity ADL Activity Resolve 2019-04-01 Lizzie assistance d 03-14 09:50:00 [place] required 12:00: [id number] 00 Activity self-care Activity Resolve 2019-04-01 Lizzie deficit d 03-14 09:50:00 [place] 12:00: [id number] 00 Safety fall risk Safety Active Lizzie factor 03-14 Nick present 12:00: [id number] 00 Safety risk for Safety Active Lizzie hospitaliza 03-14 [place] tion 12:00: [id number] 00 Medication oral med Meds Resolve 2019-03-27 Lizzie assistance d 03-14 09:15:00 [place] required 12:00: [id number] 00 Medication knowledge/s Meds Active Lizzie kill 03-14 [place] deficit: pt 12:00: [id number] 00 Medication potential Meds Active Lizzie clinically 03-14 [place] significant 12:00: [id number] medication 00 issue Musculoskel transfer Musculoske Resolve 2019-03-20 Lizzie etal assistance letal d 03-14 09:30:00 [place] required 12:00: [id number] 00 Musculoskel requires Musculoske Resolve 2019-03-20 Lizzie etal human letal d 03-14 09:30:00 [place] assist to 12:00: [id number] leave home 00 Respiratory smoker Respirator Resolve [...] mg tablet mg tablet 03-14 Kizzy INGRAM ne buprenorphi buprenorphi Yes Ajay Unknown Unknown ne 8 ne 8 - Kizzy INGRAM mg-naloxone mg-naloxone ne 2 mg 2 mg sublingual sublingual film film Cymbalta 30 Cymbalta 30 Yes Ajay Unknown Unknown mg mg - Kizzy INGRAM capsule,del capsule,del ne ayed ayed release release Mavyret 100 Mavyret 100 2018- Ajay Unknown Unknown mg-40 mg mg-40 mg 03-14- Kizzy INGRAM tablet tablet ne Narcan 4 Narcan 4 Yes Ajay Unknown Unknown mg/actuatio mg/actuatio 03-14 Kizzy INGRAM n nasal n nasal ne spray spray Ventolin Ventolin Yes Ajay Unknown Unknown HFA 90 HFA 90 - Kizzy INGRAM mcg/actuati mcg/actuati ne on aerosol [...] flu vaccine 2018-06 Yes Ajay Unknown Unknown [id number](17yr [id number](17yr 0-10 Kizzy INGRAM up)rcmb(PF) up)rcmb(PF) ne 180 mcg(45 180 mcg(45 mcgx4)/0.5 mcgx4)/0.5 mL IM mL IM syringe syringe nitrofurant nitrofurant 2018-06- Yes Ajay Unknown Unknown oin oin 11-04 Kizzy INGRAMsthernan anandrysta ne l 100 mg l 100 mg capsule capsule Vital Signs Vital Name Observation Time Observation Value Comments SYSTOLIC mm[Hg] 2019-05-13 18:08:56 136 mm[Hg] mm[Hg] Method: Stand DIASTOLIC mm[Hg] 2019-05-13 18:08:56 82 mm[Hg] mm[Hg] Method: Stand RESP RATE 2019-06-04 18:09:18 16 /min /min Procedures This patient has no known procedures. Results This patient has no known results.
--- OUTSIDE RECORDS SUMMARY | 2019-06-16 12:39 | XMS REPORT ---
:1965 Author Organization [facility] Care Team Providers Name Role Phone Unavailable Unavailable Unavailable Problems Condition Condition Condition Status Onset Resolution Last Treating Comments Name Details Category Date Date Treatment Clinician Date Pain frequent Pain Mgmt Resolve 2019-03-27 Lizzie pain d 03-14 09:15:00 [place] 12:00: [id number] 00 Respiratory dyspnea Respirator Resolve 2019-04-10 Lizzie present y d 03-14 10:10:00 [place] 12:00: [id number] 00 Nutrition nutritional Nutrition Resolve 2019-04-15 Lizzie restriction d 03-14 14:05:00 [place] s 12:00: [id number] 00 Elimination UTI within Eliminatio Resolve 2019-03-20 Lizzie past 14 n d 03-14 09:30:00 [place] days 12:00: [id number] 00 Elimination constipatio Eliminatio Resolve 2019-04-01 Lizzie n n d 03-14 09:50:00 [place] 12:00: [id number] 00 Elimination urinary Eliminatio Resolve 2019-04-01 Lizzie incontinenc n d 03-14 09:50:00 [place] e 12:00: [id number] 00 Elimination knowledge/s Eliminatio Resolve 2019-04-01 Lizzie kill n d 03-14 09:50:00 [place] deficit: pt 12:00: [id number] 00 Neuro confusion Neuro/Emot Active Lizzie present ion 03-14 [place] 12:00: [id number] 00 Neuro anxiety Neuro/Emot Active Lizzie present ion 03-14 Nick 12:00: [id number] 00 Neuro depressive Neuro/Emot Active Lizzie feelings ion 03-14 Nick present 12:00: [id number] 00 Neuro impaired Neuro/Emot Active Lizzie decision-ma ion 03-14 [place] con 12:00: [id number] 00 Neuro memory Neuro/Emot Active Lizzie deficit ion - [place] needing 12:00: [id number] supervision 00 Neuro knowledge/s Neuro/Emot Active Lizzie kill ion - [place] deficit: pt 12:00: [id number] 00 Activity ADL Activity Resolve 2019-04-01 Lizzie assistance d 03-14 09:50:00 [place] required 12:00: [id number] 00 Activity self-care Activity Resolve 2019-04-01 Lizzie deficit d 03-14 09:50:00 [place] 12:00: [id number] 00 Safety fall risk Safety Active Lizzie factor 03-14 [place] present 12:00: [id number] 00 Safety risk for Safety Active Lizzie hospitaliza 03-14 [place] tion 12:00: [id number] 00 Medication oral med Meds Resolve 2019-03-27 Lizzie assistance d 03-14 09:15:00 [place] required 12:00: [id number] 00 Medication knowledge/s Meds Active Lizzie kill 03-14 [place] deficit: pt 12:00: [id number] 00 Medication potential Meds Active Lizzie clinically 03-14 [place] significant 12:00: [id number] medication 00 issue Musculoskel transfer Musculoske Resolve 2019-03-20 Lizzie etal assistance letal d 03-14 09:30:00 [place] required 12:00: [id number] 00 Musculoskel requires Musculoske Resolve 2019-03-20 Lizzie etal human letal d 03-14 09:30:00 [place] assist to 12:00: [id number] leave home 00 Respiratory smoker Respirator Resolve [...] Unknown mg-40 mg mg-40 mg 03-14 Kizzy INRGAM tablet tablet ne Narcan 4 Narcan 4 [...] flu vaccine 2018-06 Yes Ajay Unknown Unknown [id number](17yr [id number](17yr 0-10 Kizzy INGRAM up)rcmb(PF) up)rcmb(PF) ne 180 [...]
--- OUTSIDE RECORDS SUMMARY | 2019-06-16 12:40 | XMS REPORT ---
:1965 Author Organization [facility] Care Team Providers Name Role Phone Unavailable Unavailable Unavailable Problems Condition Condition Condition Status Onset Resolution Last Treating Comments Name Details Category Date Date Treatment Clinician Date Pain frequent Pain Mgmt Resolve 2019-03-27 Lizzie pain d 03-14 09:15:00 [place] 12:00: [id number] 00 Respiratory dyspnea Respirator Resolve 2019-04-10 Lizzie present y d 03-14 10:10:00 [place] 12:00: [id number] 00 Nutrition nutritional Nutrition Resolve 2019-04-15 Lizzie restriction d 03-14 14:05:00 [place] s 12:00: [id number] 00 Elimination UTI within Eliminatio Resolve 2019-03-20 Lizzie past 14 n d 03-14 09:30:00 [place] days 12:00: [id number] 00 Elimination constipatio Eliminatio Resolve 2019-04-01 Lizzie n n d 03-14 09:50:00 [place] 12:00: [id number] 00 Elimination urinary Eliminatio Resolve 2019-04-01 Lizzie incontinenc n d 03-14 09:50:00 [place] e 12:00: [id number] 00 Elimination knowledge/s Eliminatio Resolve 2019-04-01 Lizzie kill n d 03-14 09:50:00 [place] deficit: pt 12:00: [id number] 00 Neuro confusion Neuro/Emot Active Lizzei present ion 03-14 [place] 12:00: [id number] 00 Neuro anxiety Neuro/Emot Active Lizzie present ion 03-14 Nick 12:00: [id number] 00 Neuro depressive Neuro/Emot Active Lizzie feelings ion 03-14 [place] present 12:00: [id number] 00 Neuro impaired Neuro/Emot Active Lizzie decision-ma ion 03-14 [place] con 12:00: [id number] 00 Neuro memory Neuro/Emot Active Lizzie deficit ion 03-14 [place] needing 12:00: [id number] supervision 00 Neuro knowledge/s Neuro/Emot Active Lizzie kill ion 03-14 [place] deficit: pt 12:00: [id number] 00 Activity ADL Activity Resolve 2019-04-01 Lizzie assistance d 03-14 09:50:00 [place] required 12:00: [id number] 00 Activity self-care Activity Resolve 2019-04-01 Lizzie deficit d 03-14 09:50:00 [place] 12:00: [id number] 00 Safety fall risk Safety Active Lizzie factor 03-14 [place] present 12:00: [id number] 00 Safety risk for Safety Active Lizzie hospitaliza 03-14 [place] tion 12:00: [id number] 00 Medication oral med Meds Resolve 2019-03-27 Lizzie assistance d 03-14 09:15:00 [place] required 12:00: [id number] 00 Medication knowledge/s Meds Active Lizzie kill 03-14 [place] deficit: pt 12:00: [id number] 00 Medication potential Meds Active Lizzie clinically 03-14 [place] significant 12:00: [id number] medication 00 issue Musculoskel transfer Musculoske Resolve 2019-03-20 Lizzie etal assistance letal d 03-14 09:30:00 [place] required 12:00: [id number] 00 Musculoskel requires Musculoske Resolve 2019-03-20 Lizzie etal human letal d 03-14 09:30:00 [place] assist to 12:00: [id number] leave home 00 Respiratory smoker Respirator Active [...] flu vaccine 2018-06 Yes Ajay Unknown Unknown [id number](17yr [id number](17yr 0-10 Kizzy INGRAM up)rcmb(PF) up)rcmb(PF) ne 180 mcg(45 180 mcg(45 mcgx4)/0.5 mcgx4)/0.5 mL IM mL IM syringe syringe nitrofurant nitrofurant 2018-06- Yes Ajay Unknown Unknown oin oin 0 11-04 Kizzy INGRAM ne l 100 mg l 100 mg capsule capsule Vital Signs Vital Name Observation Time Observation Value Comments SYSTOLIC mm[Hg] 2019-05-15 18:08:58 138 mm[Hg] mm[Hg] Method: Sit SYSTOLIC mm[Hg] 2019-05-13 18:08:56 136 mm[Hg] mm[Hg] Method: Stand DIASTOLIC mm[Hg] 2019-05-15 18:08:58 78 mm[Hg] mm[Hg] Method: Sit DIASTOLIC mm[Hg] 2019-05-13 18:08:56 82 mm[Hg] mm[Hg] Method: Stand PULSE 2019-05-15 18:08:58 88 /min /min RESP RATE 2019-05-15 18:08:58 18 /min /min TEMP 2019-05-15 18:08:58 97.1 [degF] Procedures This patient has no known procedures. Results This patient has no known results.
--- OUTSIDE RECORDS SUMMARY | 2019-06-16 12:40 | XMS REPORT ---
:1965 Author Organization [facility] Care Team Providers Name Role Phone Unavailable Unavailable Unavailable Problems Condition Condition Condition Status Onset Resolution Last Treating Comments Name Details Category Date Date Treatment Clinician Date Pain frequent Pain Mgmt Resolve 2019-03-27 Lizzie pain d 03-14 09:15:00 [place] 12:00: [id number] 00 Respiratory dyspnea Respirator Resolve 2019-04-10 Lizzie present y d 03-14 10:10:00 [place] 12:00: [id number] 00 Nutrition nutritional Nutrition Resolve 2019-04-15 Lizzie restriction d 03-14 14:05:00 [place] s 12:00: [id number] 00 Elimination UTI within Eliminatio Resolve 2019-03-20 Lizzie past 14 n d 03-14 09:30:00 [place] days 12:00: [id number] 00 Elimination constipatio Eliminatio Resolve 2019-04-01 Lizzie n n d 03-14 09:50:00 [place] 12:00: [id number] 00 Elimination urinary Eliminatio Resolve 2019-04-01 Lizzie incontinenc n d 03-14 09:50:00 [place] e 12:00: [id number] 00 Elimination knowledge/s Eliminatio Resolve 2019-04-01 Lizzie kill n d 03-14 09:50:00 [place] deficit: pt 12:00: [id number] 00 Neuro confusion Neuro/Emot Active Lizzie present ion 03-14 [place] 12:00: [id number] 00 Neuro anxiety Neuro/Emot Active Lizzie present ion 03-14 [place] 12:00: [id number] 00 Neuro depressive Neuro/Emot Active Lizzie feelings ion 03-14 [place] present 12:00: [id number] 00 Neuro impaired Neuro/Emot Active Lizzie decision-ma ion 03-14 [place] con 12:00: [id number] 00 Neuro memory Neuro/Emot Active Lizzie deficit ion 03-14 [place] needing 12:00: [id number] supervision 00 Neuro knowledge/s Neuro/Emot Active Lizzie kill ion 03-14 [place] deficit: pt 12:00: [id number] 00 Activity ADL Activity Resolve 2019-04-01 Lizzie assistance d 03-14 09:50:00 [place] required 12:00: [id number] 00 Activity self-care Activity Resolve 2019-04-01 Lizzie deficit d 03-14 09:50:00 [place] 12:00: [id number] 00 Safety fall risk Safety Active Lizzie factor 03-14 [place] present 12:00: [id number] 00 Safety risk for Safety Active Lizzie hospitaliza 03-14 [place] tion 12:00: [id number] 00 Medication oral med Meds Resolve 2019-03-27 Lizzie assistance d 03-14 09:15:00 [place] required 12:00: [id number] 00 Medication knowledge/s Meds Active Lizzie kill 03-14 [place] deficit: pt 12:00: [id number] 00 Medication potential Meds Active Lizzie clinically 03-14 [place] significant 12:00: [id number] medication 00 issue Musculoskel transfer Musculoske Resolve 2019-03-20 Lizzie etal assistance letal d 03-14 09:30:00 [place] required 12:00: [id number] 00 Musculoskel requires Musculoske Resolve 2019-03-20 Lizzie etal human letal d 03-14 09:30:00 [place] assist to 12:00: [id number] leave home 00 Respiratory smoker Respirator Active [...] d 0-31 10:10:00 [place] 09:30: RN 00 Allergies, Adverse Reactions, Alerts Allergy [...] Unknown Unknown oin oin 03-23 10-08 Kizzy INGRAMrysthernan ne l 100 mg l 100 mg capsule capsule flu vaccine flu vaccine 2018-06 Yes Ajay Unknown Unknown [id number](17yr [id number](17yr 0-10 Kizzy INGRAM up)rcmb(PF) up)rcmb(PF) ne 180 mcg(45 180 mcg(45 mcgx4)/0.5 mcgx4)/0.5 mL IM mL IM syringe syringe nitrofurant nitrofurant 2018-06- Yes Ajay Unknown Unknown oin oin 028 11-04 Kizzy INGRAMrysta ne l 100 mg l 100 mg capsule capsule Vital Signs Vital Name Observation Time Observation Value Comments SYSTOLIC mm[Hg] 2019-05-06 18:08:49 128 mm[Hg] mm[Hg] Method: Sit SYSTOLIC mm[Hg] 2019-03-14 18:07:56 110 mm[Hg] mm[Hg] Method: Stand DIASTOLIC mm[Hg] 2019-05-06 18:08:49 82 mm[Hg] mm[Hg] Method: Sit DIASTOLIC mm[Hg] 2019-03-14 18:07:56 74 mm[Hg] mm[Hg] Method: Stand PULSE 2019-05-06 18:08:49 84 /min /min RESP RATE 2019-05-06 18:08:49 16 /min /min TEMP 2019-05-06 18:08:49 98.1 [degF] Procedures This patient has no known procedures. Results This patient has no known results.
--- OUTSIDE RECORDS SUMMARY | 2019-06-16 12:40 | XMS REPORT ---
:1965 Author Organization [facility] Care Team Providers Name Role Phone Unavailable Unavailable Unavailable Problems Condition Condition Condition Status Onset Resolution Last Treating Comments Name Details Category Date Date Treatment Clinician Date Pain frequent Pain Mgmt Resolve 2019-03-27 Lizzie pain d 03-14 09:15:00 [place] 12:00: [id number] 00 Respiratory dyspnea Respirator Resolve 2019-04-10 Lizzie present y d 03-14 10:10:00 [place] 12:00: [id number] 00 Nutrition nutritional Nutrition Resolve 2019-04-15 Lizzie restriction d 03-14 14:05:00 [place] s 12:00: [id number] 00 Elimination UTI within Eliminatio Resolve 2019-03-20 Lizzie past 14 n d 03-14 09:30:00 [place] days 12:00: [id number] 00 Elimination constipatio Eliminatio Resolve 2019-04-01 Lizzie n n d 03-14 09:50:00 [place] 12:00: [id number] 00 Elimination urinary Eliminatio Resolve 2019-04-01 Lizzie incontinenc n d 03-14 09:50:00 [place] e 12:00: [id number] 00 Elimination knowledge/s Eliminatio Resolve 2019-04-01 Lizzie kill n d 03-14 09:50:00 [place] deficit: pt 12:00: [id number] 00 Neuro confusion Neuro/Emot Active Lizzie present ion 03-14 [place] 12:00: [id number] 00 Neuro anxiety Neuro/Emot Active Lizzie present ion 03-14 [place] 12:00: [id number] 00 Neuro depressive Neuro/Emot Active Lizzie feelings ion 03-14 [place] present 12:00: [id number] 00 Neuro impaired Neuro/Emot Active Lizzie decision-ma ion 03-14 [place] con 12:00: [id number] 00 Neuro memory Neuro/Emot Active Lizzie deficit ion 03-14 [place] needing 12:00: [id number] supervision 00 Neuro knowledge/s Neuro/Emot Active Lizzie kill ion 03-14 [place] deficit: pt 12:00: [id number] 00 Activity ADL Activity Resolve 2019-04-01 Lizzie assistance d 03-14 09:50:00 [place] required 12:00: [id number] 00 Activity self-care Activity Resolve 2019-04-01 L[place] deficit d 03-14 09:50:00 [place] 12:00: [id number] 00 Safety fall risk Safety Active Lizzie factor 03-14 [place] present 12:00: [id number] 00 Safety risk for Safety Active Lizzie hospitaliza 03-14 [place] tion 12:00: [id number] 00 Medication oral med Meds Resolve 2019-03-27 Lizzie assistance d 03-14 09:15:00 [place] required 12:00: [id number] 00 Medication knowledge/s Meds Active Lizzie kill 03-14 [place] deficit: pt 12:00: [id number] 00 Medication potential Meds Active Lizzie clinically 03-14 [place] significant 12:00: [id number] medication 00 issue Musculoskel transfer Musculoske Resolve 2019-03-20 Lizzie etal assistance letal d 03-14 09:30:00 [place] required 12:00: [id number] 00 Musculoskel requires Musculoske Resolve 2019-03-20 Lizzie etal human letal d 03-14 09:30:00 [place] assist to 12:00: [id number] leave home 00 Respiratory smoker Respirator Active [...] flu vaccine 2018-06 Yes Ajay Unknown Unknown [id number](17yr [id number](17yr 0-10 Kizzy INGRAM up)rcmb(PF) up)rcmb(PF) ne 180 [...]
--- OUTSIDE RECORDS SUMMARY | 2019-06-16 12:40 | XMS REPORT ---
:1965 Author Organization [facility] Care Team Providers Name Role Phone Unavailable Unavailable Unavailable Problems Condition Condition Condition Status Onset Resolution Last Treating Comments Name Details Category Date Date Treatment Clinician Date Pain frequent Pain Mgmt Resolve 2019-03-27 Lizzie pain d 03-14 09:15:00 [place] 12:00: [id number] 00 Respiratory dyspnea Respirator Resolve 2019-04-10 Lizzie present y d 03-14 10:10:00 [place] 12:00: [id number] 00 Nutrition nutritional Nutrition Resolve 2019-04-15 Lizzie restriction d 03-14 14:05:00 [place] s 12:00: [id number] 00 Elimination UTI within Eliminatio Resolve 2019-03-20 Lizzie past 14 n d 03-14 09:30:00 [place] days 12:00: [id number] 00 Elimination constipatio Eliminatio Resolve 2019-04-01 Lizz[place] n n d 03-14 09:50:00 [place] 12:00: [id number] 00 Elimination urinary Eliminatio Resolve 2019-04-01 Lizzie incontinenc n d 03-14 09:50:00 [place] e 12:00: [id number] 00 Elimination knowledge/s Eliminatio Resolve 2019-04-01 Lizzie kill n d 03-14 09:50:00 [place] deficit: pt 12:00: [id number] 00 Neuro confusion Neuro/Emot Active Lizzie present ion 03-14 [place] 12:00: [id number] 00 Neuro anxiety Neuro/Emot Active Lizzie present ion 03-14 [place] 12:00: [id number] 00 Neuro depressive Neuro/Emot Active Lizzie feelings ion 03-14 [place] present 12:00: [id number] 00 Neuro impaired Neuro/Emot Active Lizzie decision-ma ion 03-14 [place] con 12:00: [id number] 00 Neuro memory Neuro/Emot Active Lizzie deficit ion 03-14 [place] needing 12:00: [id number] supervision 00 Neuro knowledge/s Neuro/Emot Active Lizzie kill ion 03-14 [place] deficit: pt 12:00: [id number] 00 Activity ADL Activity Resolve 2019-04-01 Lizzie assistance d 03-14 09:50:00 [place] required 12:00: [id number] 00 Activity self-care Activity Resolve 2019-04-01 [place] deficit d 03-14 09:50:00 [place] 12:00: [id number] 00 Safety fall risk Safety Active Lizzie factor 03-14 [place] present 12:00: [id number] 00 Safety risk for Safety Active Lizzie hospitaliza 03-14 [place] tion 12:00: [id number] 00 Medication oral med Meds Resolve 2019-03-27 Lizzie assistance d 03-14 09:15:00 [place] required 12:00: [id number] 00 Medication knowledge/s Meds Active Lizzie kill 03-14 [place] deficit: pt 12:00: [id number] 00 Medication potential Meds Active Lizzie clinically 03-14 [place] significant 12:00: [id number] medication 00 issue Musculoskel transfer Musculoske Resolve 2019-03-20 Lizzie etal assistance letal d 03-14 09:30:00 [place] required 12:00: [id number] 00 Musculoskel requires Musculoske Resolve 2019-03-20 Lizzie etal human letal d 03-14 09:30:00 [place] assist to 12:00: [id number] leave home 00 Respiratory smoker Respirator Active [...] flu vaccine 2018-06 Yes Ajay Unknown Unknown [id number](17yr [id number](17yr 0-10 Kizzy INGRAM up)rcmb(PF) up)rcmb(PF) ne 180 [...] 82 mm[Hg] mm[Hg] Method: Stand RESP RATE 2019-05-13 18:08:56 18 /min /min Procedures This patient has no known procedures. Results This patient has no known results.
--- OUTSIDE RECORDS SUMMARY | 2019-06-16 12:40 | XMS REPORT ---
:1965 Author Organization [facility] Care Team Providers Name Role Phone Unavailable Unavailable Unavailable Problems Condition Condition Condition Status Onset Resolution Last Treating Comments Name Details Category Date Date Treatment Clinician Date Pain frequent Pain Mgmt Resolve 2019-03-27 Lizzie pain d 03-14 09:15:00 [place] 12:00: [id number] 00 Respiratory dyspnea Respirator Resolve 2019-04-10 Lizzie present y d 03-14 10:10:00 [place] 12:00: [id number] 00 Nutrition nutritional Nutrition Resolve 2019-04-15 [place] restriction d 03-14 14:05:00 [place] s 12:00: [id number] 00 Elimination UTI within Eliminatio Resolve 2019-03-20 Lizzie past 14 n d 03-14 09:30:00 [place] days 12:00: [id number] 00 Elimination constipatio Eliminatio Resolve 2019-04-01 Lizzie n n d 03-14 09:50:00 [place] 12:00: [id number] 00 Elimination urinary Eliminatio Resolve 2019-04-01 Lizzie incontinenc n d 03-14 09:50:00 [place] e 12:00: [id number] 00 Elimination knowledge/s Eliminatio Resolve 2019-04-01 L[place] kill n d 03-14 09:50:00 [place] deficit: pt 12:00: [id number] 00 Neuro confusion Neuro/Emot Active Lizzie present ion 03-14 [place] 12:00: [id number] 00 Neuro anxiety Neuro/Emot Active Lizzie present ion 03-14 [place] 12:00: [id number] 00 Neuro depressive Neuro/Emot Active Lizzie feelings ion 03-14 [place] present 12:00: [id number] 00 Neuro impaired Neuro/Emot Active Lizzie decision-ma ion 03-14 [place] con 12:00: [id number] 00 Neuro memory Neuro/Emot Active Lizzie deficit ion 03-14 [place] needing 12:00: [id number] supervision 00 Neuro knowledge/s Neuro/Emot Active Lizzie kill ion 03-14 [place] deficit: pt 12:00: [id number] 00 Activity ADL Activity Resolve 2019-04-01 [place] assistance d 03-14 09:50:00 [place] required 12:00: [id number] 00 Activity self-care Activity Resolve 2019-04-01 [place] deficit d 03-14 09:50:00 [place] 12:00: [id number] 00 Safety fall risk Safety Active Lizzie factor 03-14 [place] present 12:00: [id number] 00 Safety risk for Safety Active Lizzie hospitaliza 03-14 [place] tion 12:00: [id number] 00 Medication oral med Meds Resolve 2019-03-27 Lizzie assistance d 03-14 09:15:00 [place] required 12:00: [id number] 00 Medication knowledge/s Meds Active Lizzie kill 03-14 [place] deficit: pt 12:00: [id number] 00 Medication potential Meds Active Lizzie clinically 03-14 [place] significant 12:00: [id number] medication 00 issue Musculoskel transfer Musculoske Resolve 2019-03-20 L[place] etal assistance letal d 03-14 09:30:00 [place] required 12:00: [id number] 00 Musculoskel requires Musculoske Resolve 2019-03-20 Lizzie etal human letal d 03-14 09:30:00 [place] assist to 12:00: [id number] leave home 00 Respiratory smoker Respirator Active [...] flu vaccine 2018-06 Yes Ajay Unknown Unknown [id number](17yr [id number](17yr 0-10 Kizzy INGRAM up)rcmb(PF) up)rcmb(PF) ne 180 [...]
--- OUTSIDE RECORDS SUMMARY | 2019-06-16 12:40 | XMS REPORT ---
:1965 Author Organization [facility] Care Team Providers Name Role Phone Unavailable Unavailable Unavailable Problems Condition Condition Condition Status Onset Resolution Last Treating Comments Name Details Category Date Date Treatment Clinician Date Pain frequent Pain Mgmt Resolve 2019-03-27 Lizzie pain d 03-14 09:15:00 [place] 12:00: [id number] 00 Respiratory dyspnea Respirator Resolve 2019-04-10 Lizzie present y d 03-14 10:10:00 [place] 12:00: [id number] 00 Nutrition nutritional Nutrition Resolve 2019-04-15 Lizzie restriction d 03-14 14:05:00 [place] s 12:00: [id number] 00 Elimination UTI within Eliminatio Resolve 2019-03-20 Lizzie past 14 n d 03-14 09:30:00 [place] days 12:00: [id number] 00 Elimination constipatio Eliminatio Resolve 2019-04-01 Lizzie n n d 03-14 09:50:00 [place] 12:00: [id number] 00 Elimination urinary Eliminatio Resolve 2019-04-01 Lizzie incontinenc n d 03-14 09:50:00 [place] e 12:00: [id number] 00 Elimination knowledge/s Eliminatio Resolve 2019-04-01 Lizzie kill n d 03-14 09:50:00 [place] deficit: pt 12:00: [id number] 00 Neuro confusion Neuro/Emot Active Lizzie present ion 03-14 [place] 12:00: [id number] 00 Neuro anxiety Neuro/Emot Active Lizzie present ion 03-14 [place] 12:00: [id number] 00 Neuro depressive Neuro/Emot Active Lizzie feelings ion 03-14 [place] present 12:00: [id number] 00 Neuro impaired Neuro/Emot Active Lizzie decision-ma ion 03-14 [place] con 12:00: [id number] 00 Neuro memory Neuro/Emot Active Lizzie deficit ion 03-14 [place] needing 12:00: [id number] supervision 00 Neuro knowledge/s Neuro/Emot Active Lizzie kill ion 03-14 [place] deficit: pt 12:00: [id number] 00 Activity ADL Activity Resolve 2019-04-01 Lizzie assistance d 03-14 09:50:00 [place] required 12:00: [id number] 00 Activity self-care Activity Resolve 2019-04-01 Lizz[place] deficit d 03-14 09:50:00 [place] 12:00: [id number] 00 Safety fall risk Safety Active Lizzie factor 03-14 [place] present 12:00: [id number] 00 Safety risk for Safety Active Lizzie hospitaliza 03-14 [place] tion 12:00: [id number] 00 Medication oral med Meds Resolve 2019-03-27 Lizzie assistance d 03-14 09:15:00 [place] required 12:00: [id number] 00 Medication knowledge/s Meds Active Lizzie kill 03-14 [place] deficit: pt 12:00: [id number] 00 Medication potential Meds Active Lizzie clinically 03-14 [place] significant 12:00: [id number] medication 00 issue Musculoskel transfer Musculoske Resolve 2019-03-20 Lizzie etal assistance letal d 03-14 09:30:00 [place] required 12:00: [id number] 00 Musculoskel requires Musculoske Resolve 2019-03-20 Lizzie etal human letal d 03-14 09:30:00 [place] assist to 12:00: [id number] leave home 00 Respiratory smoker Respirator Active [...] Unknown mg-40 mg mg-40 mg 03-14 09- Kizzy INGRAM tablet tablet ne Narcan 4 [...] flu vaccine 2018-06 Yes Ajay Unknown Unknown [id number](17yr [id number](17yr 0-10 Kizzy INGRAM up)rcmb(PF) up)rcmb(PF) ne 180 mcg(45 180 mcg(45 mcgx4)/0.5 mcgx4)/0.5 mL IM mL IM syringe syringe nitrofurant nitrofurant 2018-06- Yes Ajay Unknown Unknown oin oin 028 11-04 Kizzy INGRAMrysta ne l 100 mg l 100 mg capsule capsule Vital Signs Vital Name Observation Time Observation Value Comments SYSTOLIC mm[Hg] 2019-05-13 18:08:56 140 mm[Hg] mm[Hg] Method: Sit SYSTOLIC mm[Hg] 2019-05-13 18:08:56 136 mm[Hg] mm[Hg] Method: Stand DIASTOLIC mm[Hg] 2019-05-13 18:08:56 82 mm[Hg] mm[Hg] Method: Sit DIASTOLIC mm[Hg] 2019-05-13 18:08:56 82 mm[Hg] mm[Hg] Method: Stand PULSE 2019-05-13 18:08:56 83 /min /min RESP RATE 2019-05-13 18:08:56 18 /min /min TEMP 2019-05-13 18:08:56 98.6 [degF] Procedures This patient has no known procedures. Results This patient has no known results.
--- OUTSIDE RECORDS SUMMARY | 2019-06-16 12:40 | XMS REPORT ---
:1965 Author Organization [facility] Care Team Providers Name Role Phone Unavailable Unavailable Unavailable Problems Condition Condition Condition Status Onset Resolution Last Treating Comments Name Details Category Date Date Treatment Clinician Date Pain frequent Pain Mgmt Resolve 2019-03-27 Lizzie pain d 03-14 09:15:00 [place] 12:00: [id number] 00 Respiratory dyspnea Respirator Resolve 2019-04-10 Lizzie present y d 03-14 10:10:00 [place] 12:00: [id number] 00 Nutrition nutritional Nutrition Resolve 2019-04-15 Lizzie restriction d 03-14 14:05:00 [place] s 12:00: [id number] 00 Elimination UTI within Eliminatio Resolve 2019-03-20 Lizzie past 14 n d 03-14 09:30:00 [place] days 12:00: [id number] 00 Elimination constipatio Eliminatio Resolve 2019-04-01 Lizzie n n d 03-14 09:50:00 [place] 12:00: [id number] 00 Elimination urinary Eliminatio Resolve 2019-04-01 Lizzie incontinenc n d 03-14 09:50:00 [place] e 12:00: [id number] 00 Elimination knowledge/s Eliminatio Resolve 2019-04-01 Lizzie kill n d 03-14 09:50:00 [place] deficit: pt 12:00: [id number] 00 Neuro confusion Neuro/Emot Active Lizzie present ion 03-14 [place] 12:00: [id number] 00 Neuro anxiety Neuro/Emot Active Lizzie present ion 03-14 [place] 12:00: [id number] 00 Neuro depressive Neuro/Emot Active Lizzie feelings ion 03-14 [place] present 12:00: [id number] 00 Neuro impaired Neuro/Emot Active Lizzie decision-ma ion 03-14 [place] con 12:00: [id number] 00 Neuro memory Neuro/Emot Active Lizzie deficit ion 03-14 [place] needing 12:00: [id number] supervision 00 Neuro knowledge/s Neuro/Emot Active Lizzie kill ion 03-14 [place] deficit: pt 12:00: [id number] 00 Activity ADL Activity Resolve 2019-04-01 [place] assistance d 03-14 09:50:00 [place] required 12:00: [id number] 00 Activity self-care Activity Resolve 2019-04-01 [place] deficit d 03-14 09:50:00 [place] 12:00: [id number] 00 Safety fall risk Safety Active Lizzie factor 03-14 [place] present 12:00: [id number] 00 Safety risk for Safety Active Lizzie hospitaliza 03-14 [place] tion 12:00: [id number] 00 Medication oral med Meds Resolve 2019-03-27 [place] assistance d 03-14 09:15:00 [place] required 12:00: [id number] 00 Medication knowledge/s Meds Active Lizzie kill 03-14 [place] deficit: pt 12:00: [id number] 00 Medication potential Meds Active Lizzie clinically 03-14 [place] significant 12:00: [id number] medication 00 issue Musculoskel transfer Musculoske Resolve 2019-03-20 [place] etal assistance letal d 03-14 09:30:00 [place] required 12:00: [id number] 00 Musculoskel requires Musculoske Resolve 2019-03-20 Lizzie etal human letal d 03-14 09:30:00 [place] assist to 12:00: [id number] leave home 00 Respiratory smoker Respirator Active [...] flu vaccine 2018-06 Yes Ajay Unknown Unknown [id number](17yr [id number](17yr 0-10 Kizzy INGRAM up)rcmb(PF) up)rcmb(PF) ne 180 [...]
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
[2019-06-16 13:54] LABS: ABS Basophils 0.1 10^3/ul (0-0.2); ABS Eosinophils 0.2 10^3/ul (0-0.6); ABS Lymphocytes 2.3 10^3/ul (1.0-4.8); ABS Monocytes 0.5 10^3/ul (0-0.8); ABS Neutrophils 2.8 10^3/ul (1.5-7.7); Hematocrit 40 % (35-47); Hemoglobin 13.5 g/dL (12.0-16.0); Lymphocyte % 39.6 %; Mean Corpuscular HGB Conc 34 g/dL (31-36); Mean Corpuscular Hemoglobin 31 pg (27-31); Mean Corpuscular Volume 92 fL (80-97); Mean Platelet Volume 8.7 fL (7.4-10.4); Nucleated Red Blood Cells % 0.2; Platelet Count 214 10^3/uL (150-450); Red Blood Count 4.31 10^6 /uL (3.70-4.87); Red Cell Distribution Width 13 % (10-15); White Blood Count 5.8 10^3/uL (3.5-10.8)
[2019-06-16 14:07] LABS: Activated Partial Thrombo Time 40.9 seconds (26.0-38.0); INR 1.1 (0.82-1.09)
[2019-06-16 14:14] LABS: ALT 12 U/L (7-52); AST 19 U/L (13-39); Albumin 4.3 g/dL (3.2-5.2); Albumin/Globulin Ratio 1.3 (1-3); Alkaline Phosphatase 88 U/L (34-104); Anion Gap 8 mmol/L (2-11); BUN/Creatinine Ratio 26.4 (8-20); Blood Urea Nitrogen 14 mg/dL (6-24); CO2 Carbon Dioxide 28 mmol/L (22-32); Calcium 9.3 mg/dL (8.6-10.3); Chloride 103 mmol/L (101-111); EGFR African American 145.5 (>60); EGFR Non-African American 120.2 (>60); Globulin 3.3 g/dL (2-4); Glucose 93 mg/dL (70-100); Potassium 3.7 mmol/L (3.5-5.0); Sodium 139 mmol/L (135-145); Total Protein 7.6 g/dL (6.4-8.9)
[2019-06-16 14:48] LABS: Alcohol < 10 mg/dL (<10)
[2019-06-16 15:04] LABS: TSH (Thyroid Stimulating Horm) 0.37 mcIU/mL (0.34-5.60)
[2019-06-16 15:06] LABS: Free T4 1.17 ng/dL (0.61-1.12)
[2019-06-16 15:49] LABS: Acetaminophen < 15 mcg/mL; Salicylate < 2.50 mg/dL (<30)
[2019-06-16 19:41] VITALS: BP 119/79
== END 2019-06-16 19:20 | disposition home or self-care (01) ==
LOC: ED 12:22
DX: F32.9 Major depressive disorder, single episode, unspecified (principal); J45.909 Unspecified asthma, uncomplicated; F17.210 Nicotine dependence, cigarettes, uncomplicated; Z90.89 Acquired absence of other organs; Z88.5 Allergy status to narcotic agent; Z88.0 Allergy status to penicillin; Z88.2 Allergy status to sulfonamides; Z88.8 Allergy status to other drugs, medicaments and biological substances; Z88.6 Allergy status to analgesic agent; Z91.041 Radiographic dye allergy status
CPT/HCPCS: 36415; 80053; 80320; 80329; 83605; 84439; 84443; 84484; 85025; 85610; 85730; 87040; 93005; 99285; G0480